=== PATIENT | male | born 1940 | race Caucasian/White ===

== ENCOUNTER 2016-10-26 07:17 | Inpatient (IN) | payer MEDICARE, BC ==
[2016-10-26] MEDS ORDERED: NS 0.9% 1000 ML* 1,000 ML IV ONE (07:32)
[2016-10-26] MEDS ORDERED: Ondansetron INJ* 2 MG/ML VIAL IV ONE (07:32)
[2016-10-26 07:54] LABS: Hematocrit 40 % (42-52); Hemoglobin 13.3 g/dl (14.0-18.0); Mean Corpuscular HGB Conc 33 g/dl (31-36); Mean Corpuscular Hemoglobin 31 pg (27-31); Mean Corpuscular Volume 93 fL (80-94); Mean Platelet Volume 9 um3 (7.4-10.4); Red Blood Count 4.31 10^6/ul (4.0-5.4); Red Cell Distribution Width 14 % (10.5-15); White Blood Count 16.4 10^3/ul (3.5-10.8)
[2016-10-26 08:03] LABS: Add Diff/Slide Review? Slide Review Added; Comments Flag Yes
[2016-10-26 08:11] LABS: Albumin 3.3 g/dL (3.2-5.2); BUN/Creatinine Ratio 31.4 (8-20); C Reactive Protein 368.08 mg/L (< 5.00); Calcium 9.9 mg/dL (8.6-10.3); EGFR African American 75.2 (>60); EGFR Non-African American 58.5 (>60); Globulin 4.1 g/dL (2-4); Magnesium 1.9 mg/dL (1.9-2.7); Total Bilirubin 0.8 mg/dL (0.2-1.0); Total Protein 7.4 g/dL (6.4-8.9); Troponin I 0.02 ng/mL (<0.04)
[2016-10-26 08:15] LABS: B Type Natriuretic Peptide 669 pg/mL
[2016-10-26] MEDS ORDERED: Iodixanol* (CONTRAST) 320 MG/ML 100 ML SDV IV ONE (08:45)
[2016-10-26 09:11] LABS: Immature Granulocytes 26 % (0-9); Myelocytes % 1 % (0-1); Neutrophil % 59 % (38-83); Promyelocytes % 1 %
[2016-10-26 09:12] LABS: Toxic Granulation 2+
[2016-10-26 09:20] LABS: Urine Bacteria Absent (Absent); Urine Bilirubin Negative (Negative); Urine Glucose 1+(50 mg/dL) (Negative); Urine Nitrite Negative (Negative)
[2016-10-26 09:26] LABS: Ammonia 46 mol/L (16-53)
--- NOTE | 2016-10-26 09:41 | RAD ---
INDICATION: Lower abdominal pain. Increased weakness. Possible fever. COMPARISON: No relevant prior exams available on the [facility]. TECHNIQUE: Multidetector CT images were obtained from the lung bases to the ischial tuberosities with 116 mL Visipaque 320 IV and oral contrast. Multiplanar reformation. REPORT: Visualized inferior thorax is remarkable for mild cardiomegaly and coronary artery calcifications. Negative for pericardial effusion. Small RIGHT epicardial lymph nodes are visualized measuring up to 0.5 cm short axis. Coarse basilar lung markings most prominent in the dependent portions. Mild interstitial edema is not excluded. Negative for pleural effusions. Heterogeneously decreased density of the liver consistent with hepatosteatosis. Negative for focal hepatic lesions or biliary dilatation. Distended gallbladder with suggestion of mild thickened wall and severe pericholecystic inflammatory change. Suggestion of a weakly calcified stone at the neck of the gallbladder. Additionally there is increased density at the level of the distal common bile duct concerning for potential common bile duct stones despite absence of biliary dilatation. Moderately atrophic pancreas without suspicious finding. Unremarkable spleen. Gastric distention with liquid and gas. Suggestion of mild mural thickening at the gastric antrum and second portion of the duodenum. Medially directed diverticulum from the second portion of the duodenum without suspicious finding. No CT abnormality of the jejunum or ileum. Unremarkable infra medially extending appendix. The hepatic flexure proximal segment of the transverse colon wall decompressed limiting assessment is remarkable for long segment mild mural thickening likely reactive secondary to the acute inflammatory process centered at the gallbladder. Trace RIGHT upper quadrant and RIGHT paracolic gutter free fluid. Negative for free air. Small fat-containing direct LEFT inguinal hernia without inflammatory change. Normal adrenal glands. Symmetric nephrograms and pyelograms. 1 cm cortical cyst anterior midpole LEFT kidney. No suspicious renal lesions or hydronephrosis. 2 mm stone at the RIGHT ureterovesicular junction noted despite absence of RIGHT hydroureteronephrosis. Unremarkable LEFT ureter and ureterovesicular junction. Partially distended urinary bladder without suggestion of wall thickening. Enlarged prostate with coarse calcifications. Grossly symmetric seminal vesicles. Mildly enlarged mary hepatis and periaortic lymph nodes measuring 1.1 cm short axis or smaller. Mild atherosclerotic plaque of normal diameter abdominal aorta and iliac arteries. Polyarticular degenerative arthropathy. No suspicious focal osseous lesions evident. IMPRESSION: 1. There is severe inflammatory reaction surrounding the gallbladder with potential cholelithiasis and involvement of the hepatic flexure proximal transverse colon as well as the gastric antrum to second portion of the duodenum. The differential includes acute cholecystitis as well as gastritis and duodenitis versus colitis. RIGHT upper quadrant ultrasound is suggested for more accurate assessment of the gallbladder. 2. Hepatosteatosis. 3. Trace ascites. 4. 2 mm stone at the RIGHT ureterovesicular junction noted despite absence of RIGHT hydroureteronephrosis. 5. Mildly enlarged mary hepatis and periaortic lymph nodes measuring 1.1 cm short axis or smaller.
[2016-10-26] MEDS ORDERED: Levofloxacin 750 MG IVPREMIX(* 750 MG/150 ML BAG IVPB ONE (10:54)
[2016-10-26] MEDS ORDERED: metroNIDAZOLE IV 500 MG/100ML* 500 MG/100 ML BAG IVPB ONE (10:55)
[2016-10-26] MEDS ORDERED: Metoprolol Tartrate IV* 1 MG/ML 5 ML VIAL IV PRN ×3 (11:30→16:18)
[2016-10-26] MEDS ORDERED: Metoprolol Tartrate IV* 1 MG/ML 5 ML VIAL ONE (11:35)
[2016-10-26] MEDS ORDERED: Dextrose 50% Syringe 50 ML* 25 GM/50 ML SYRINGE IV PUSH PRN (12:08)
[2016-10-26] MEDS ORDERED: NS 0.9% 1000 ML* 1,000 ML IV SCH (12:15)
--- NOTE | 2016-10-26 13:11 | RAD ---
INDICATION: Abdominal pain. COMPARISON: Comparison is made with a prior CT of the abdomen and pelvis of the same date. TECHNIQUE: Multiple real-time images of the right upper quadrant were obtained. FINDINGS: The gallbladder is distended. No gallstones are seen although there is biliary sludge present. The gallbladder wall is thickened measuring up to 8 mm in thickness and there is a trace amount of pericholecystic fluid. The patient had tenderness strictly over the gallbladder. No intrahepatic ductal distention is seen although there is mild extrahepatic ductal distention. The common bile duct measured 0.9 cm in diameter. The liver is normal in size and increased in echogenicity consistent with fatty infiltration as seen on the prior CT study. No focal hepatic abnormality is seen. The pancreas is partially obscured by overlying bowel gas. The right kidney is normal in size without evidence for hydronephrosis. IMPRESSION: 1. DISTENDED GALLBLADDER WITH THICKENED GALLBLADDER DEL RIO AND SLUDGE SUGGESTING THE POSSIBILITY OF ACALCULUS CHOLECYSTITIS. A HEPATOBILIARY NUCLEAR MEDICINE SCAN MAY BE HELPFUL IN FURTHER EVALUATION. 2. MILD EXTRAHEPATIC DUCTAL DISTENTION. 3. HEPATIC STEATOSIS.
[2016-10-26] MEDS: Clopidogrel TAB* 75 MG PO SCH (13:43)
[2016-10-26] MEDS: Heparin VIAL(*) 5000 UNITS/ML VIAL (FIVE THOUSAND) SUBCUT SCH ×2 (13:43→21:44)
[2016-10-26] MEDS: Aspirin EC Low Dose* 81 MG TAB.EC PO SCH (13:43)
[2016-10-26] MEDS: Metoprolol Tartrate IV* 1 MG/ML 5 ML VIAL IV SCH ×2 (13:44→17:42)
--- NOTE | 2016-10-26 13:59 | CONS ---
CC: Dr. Tyrone Leo; Dr. Adrien Brown; Dr. Tawanda Myers; [facility] SURGICAL CONSULTATION REPORT: DATE OF CONSULT: 10/26/16 LOCATION: The patient is seen in the emergency room. HISTORY OF PRESENT ILLNESS: I was contacted by the emergency room physicians to evaluate Mr. Moreno, a 76-year-old gentleman who presents to [facility] Room today with a 2-week history of severe ab dominal pain, decreased appetite as well as chills. The patient describes onset of symptoms approximately 2 weeks ago, mostly in the upper abdomen, some what radiating, relieved with rest. Pain was somewhat intermittent and then became more steady with in the past week. The pain also migrated to the lower abdomen. It was accompanied with significant ly decreased appetite, bloating, hiccups. The patient denies nausea, however. He is passing flatus but not much and he is having bowel movements, the last one being this morning which is also small. The patient states he has not been eating or drinking much at all. The patient felt without improve ment, that he would present to the emergency room today. No significant changes within the last day or two other than persistent symptoms. The patient denies any previous similar symptoms. PAST MEDICAL HISTORY: Atrial fibrillation, type 2 diabetes, obesity, coronary artery disease, chron ic kidney disease, hypertension, BPH, arthritis, history of duodenal ulcer and GI bleed in 1989. O bstructive sleep apnea, on CPAP. Hypercholesterolemia. PAST SURGICAL HISTORY: Reviewed. No abdominal surgeries. HOME MEDICATIONS: Include, he takes: 1. Plavix 75 mg daily. 2. Glipizide. 3. Hydrocodone. He takes hydrocodone for his back pain and arthritis. 4. Lovaza. 5. Bystolic. 6. BuSpar. 7. Glucosamine. 8. Aspirin 81 mg. 9. Nitropatch as needed. 10. Nexium 40 mg. 11. Avodart. 12. Fenofibrate. 13. Ramipril. 14. Flonase. 15. Coenzyme Q. ALLERGIES: List reviewed. SOCIAL HISTORY: He denies tobacco or alcohol use. He lives with his . He is retired. REVIEW OF SYSTEMS: He denies fevers but has had chills and sweats. No recent weight gain or weight loss. No headaches. No shortness of breath or chest pain. The patient normally can walk up a flig ht of stairs but finds it difficult now because he states he is weak. Abdominal complaints as descr ibed. No dysuria. No change in bowel habits. No bleeding or clotting disorders. No dark colored urine or light colored stools. He does have hiccups but he has not vomited. PHYSICAL EXAM: He is afebrile. Heart rate tachy in the 130s, I did not view an EKG at this time. Hypertensive, O2 sat 96 with a respiration rate in the low 20s. He is alert and oriented x3 in no ap parent distress. Head, Ears, Eyes and Throat: Normocephalic, atraumatic. Sclerae anicteric. Mucou s membranes are dry. He has got a washcloth on his forehead. He is somewhat clammy. Neck: No lym phadenopathy. Lungs: Clear to auscultation bilaterally with good inspiratory effort. Abdomen: So ft, obese, distended and tender only on deep palpation in the mid abdomen. No hernias are noted. N egative Clark's sign. No CVA tenderness. Rectal exam not performed. DIAGNOSTIC STUDIES/LAB DATA: Labs reviewed show a white count of 16.4 with no left shift. H and H 13/40, the patient typically has hematocrit of 36. Metabolic panel reviewed shows a glucose of 230. BUN and creatinine ratio of 31. Creatinine 1.2 which is not far of his baseline. Elevated CRP an d normal LFTs. Urinalysis shows trace blood and ketones as well as glucose. The patient underwent a CAT scan of the abdomen and pelvis. These images as well as report reviewed . Large inflammatory process around the dilated gallbladder which shows involvement in the proximal colon, as well as, duodenal inflammatory changes as well. The patient's stomach is fluid filled an d distended. IMPRESSION: A 76-year-old gentleman with metabolic syndrome and now presents with 2-week history of abdominal pain with history of duodenal ulcer in the past but with strong inflammatory process show ing up in the gallbladder, which is suggestive of an acute cholecystitis. I favor this at this time . Differential diagnosis includes colitis as well as enteritis. The patient is getting started on antibiotics at this point, require IV fluids, admission. I believe the patient is out of the window to look towards urgent laparoscopic cholecystectomy. We will await ultrasound. If the gallbladder appears within normal limits with the exception of dilatation, then we will entertain the idea of d uodenal issue and recommend gastroenterology evaluation and possible EGD. I discussed with patient and patient's family the possibility of requiring urgent trip to the operating room for cholecystect darrian or cholecystostomy. My impression now is that the antibiotics and hospitalization will be adequ ate but we will follow along closely. I have asked the ER doctors to consult the hospitalist marko andino for admission. The patient and patient's family members questions were answered. We will continu e to follow closely. He is already started on Levaquin and Flagyl. Concern will be patient's ability to get nutrition and this might lead to potential need for edenilson ral nutrition but we will certainly await the next 24 hours prior to any intervention of this kind. [id number]/[facility] #: [id number]
--- NOTE | 2016-10-26 14:40 | HP ---
CC: Tyrone Leo MD HISTORY AND PHYSICAL: DATE OF ADMISSION: 10/26/16 PCP: Tyrone Leo MD CHIEF COMPLAINT: Abdominal pain. HISTORY OF PRESENT ILLNESS: Mr. Moreno is a 76-year-old male with past medical history of hypertensi on, CAD, status post stenting x3, KIT on CPAP, diabetes, BPH, CKD 3, subdural hematoma, AFib, who pr esents to the hospital with 2 weeks of abdominal pain. The patient states that the pain began about 2 weeks ago, was initially located in the epigastric area. However, he feels it has moved down tow ards his lower abdomen over the past few weeks. He has felt nauseous and had decreased p.o. intake. He has been trying food intermittently, but this has worsened the pain, although he has noticed th at when he eats yogurt, it seems to help. He has had some dry heaving, but no emesis. He states he occasionally gets some episodes where he feels really hot and sweaty. He has never had any history like this before. He states when he urinates, it seems to improve the pain. Denies any blood in hi s urine or any flank pain. No chest pain or shortness of breath. He has had some diarrhea that has been nonbloody. No constipation. No blood in the stool. No sick contacts at home. PAST MEDICAL HISTORY: CAD, status post stenting x3; KIT, on CPAP; type 2 diabetes; hypertension; BP H; CKD x3; subdural hematoma was not traumatic; and AFib. PAST SURGICAL HISTORY: Stent placement and yudy hole placement. ALLERGIES: KEFLEX, STATINS, EZETIMIBE. HOME MEDICATIONS: 1. Multivitamin 2 tablets by mouth daily. 2. Beclomethasone 2 sprays in both nares at bedtime. 3. Alirocumab 75 mg subcutaneous every 2 weeks. 4. Amlodipine 10 mg by mouth nightly. 5. Ramipril 10 mg by mouth nightly. 6. Aspirin 81 mg by mouth daily. 7. Magnesium oxide 250 mg by mouth daily. 8. Glucosamine chondroitin 1 tablet by mouth 2 times daily. 9. Fenofibrate 48 mg by mouth nightly. 10. Esomeprazole 40 mg by mouth daily. 11. Dutasteride 0.5 mg by mouth daily. 12. B complex 1 tablet by mouth daily. 13. Buspirone 10 mg by mouth 2 times daily. 14. Lovaza 1 g by mouth 3 times daily. 15. Nebivolol 15 mg by mouth daily. 16. Glipizide-metformin 5/500 two tablets by mouth 2 times daily. 17. Eplerenone 50 mg by mouth daily. 18. Coenzyme Q 100 mg by mouth daily. 19. Ludlow 5/325 one tablet by mouth every 6 hours as needed for pain. 20. Plavix 75 mg by mouth daily. FAMILY HISTORY: Significant for mother with diabetes, father with CAD who at 49, paternal gran dmother with CAD, paternal grandfather with CAD who at 41. SOCIAL HISTORY: The patient denies any history of tobacco abuse, alcohol abuse, or illicit drug use . REVIEW OF SYSTEMS: A 12-point review of systems was negative except for that as noted in the HPI. PHYSICAL EXAMINATION GENERAL: The patient is a pleasant elderly male, lying in bed in no apparent distress. VITAL SIGNS ON ADMISSION: Temperature 98.1, heart rate of 139, respiratory rate of 22, O2 saturatio n 94% on room air, blood pressure 143/80. HEENT: Head normocephalic and atraumatic. Eyes: Anicteric sclerae. Pupils equal, round, and reac tive to light and accommodation. ENT: Moist mucous membranes. No oropharyngeal erythema. No cerv ical adenopathy. CARDIOVASCULAR: Tachycardic, irregularly irregular. No murmurs, gallops, or rubs. The patient has some mild bibasilar rales. No wheezing is appreciated. ABDOMEN: Soft, mild distension. Bowel sounds positive. Mostly tender to palpation in the right lo wer quadrant. No rebound or guarding. EXTREMITIES: No cyanosis, clubbing, or edema. NEUROLOGIC: The patient is alert and oriented x3. No focal neurological deficits. DIAGNOSTIC STUDIES/LAB DATA: White blood cell count is 16.4, hematocrit of 40, platelets of 268, b ands of 24%. Sodium 135, potassium 4.0, chloride is 96, carbon dioxide is 36, BUN of 38, creatinine of 1.21, glucose of 230. LFTs are within normal limits. Troponin of 0.02, CRP of 368, B-natriuret ic peptide of 669. Lipase of 62. UA with 2+ protein, 1+ ketones. No blood. EKG, personally reviewed, shows AFib with rapid ventricular response. CT of the abdomen and pelvis shows inflammation involving the gallbladder, potential chololithiasis, and some duodenal and colon inflammation, also noted incidentally is a 2 mm stone in the right ureterovesical junction with no r ight-sided hydronephrosis, also hepatic steatosis and trace ascites. ASSESSMENT AND PLAN: Acute cholecystitis in a 76-year-old male with past medical history of coronar y artery disease, status post stent placement x3; obstructive sleep apnea, on CPAP; diabetes; hypert ension; benign prostatic hypertrophy, chronic kidney disease 3, subdural hematoma, and atrial fibril lation. 1. Acute cholecystitis. This seems like the most likely diagnosis; however, we will need an ultras ound to help confirm this. The patient does have diffuse inflammation noted on CT scan. He has got a significant bandemia. He has received Levaquin and Flagyl in the emergency department. We will continue on Cipro and Flagyl. We will place the patient on clear liquids for now. Appreciate Surge ry consultation. Dr. Wooten feels that the patient is out of the window for rushing off to surgery a t this point, would prefer to treat with antibiotics and determine when to undergo surgery based on the patient's response. The patient does not have an elevated lactic acid, though he does have some evidence of rales and elevated B- natriuretic peptide. He has got a liter of fluid in the emergenc y department. We will hold off on additional fluids for now. We will place the patient on a clear liquid diet. 2. Atrial fibrillation. The patient's rate is not controlled. He states he has not been taking hi s medications for a few days due to nausea. He has not received anything in the emergency departmen t for rate control. I have ordered him 5 mg of IV metoprolol for now, and we will start scheduled q .6 hours, trying to minimize the amount of p.o. medications the patient is taking as he has had sign ificant nausea over the past days and has been unable to keep them down. 3. Coronary artery disease. The patient had a stent placed. It looks like this was the last one t hat was done last November, which has been about a year. He is on aspirin and Plavix. We will discuss further with Surgery regarding continuing Plavix or whether that would impede surgery. We will cont inue aspirin for now. 4. Chronic kidney disease 3. The patient's creatinine seems to be at baseline. 5. Diabetes. Hold the patient's glipizide and metformin. We will write for Humalog insulin slidin g scale. 6. Obstructive sleep apnea. Continue patient on CPAP at night. 7. Hypertension. Continue with metoprolol alone for now. Hold patient's home ramipril, eplerenone , and amlodipine. Can restart this as pressures tolerate; however, in the setting of significant in fection, we will hold it. 8. Incidental kidney stone, does not seem to be causing any issues at this point. No hydronephrosis , no blood in the urine, but it is noted. We can keep that in mind if any new symptoms pop up. 9. DVT prophylaxis, heparin subcu. 10. Code status. The patient is a full code. TIME SPENT: Total time spent on this admission 60 minutes with over half the time spent face-to-fac e with the patient in counseling and coordinating the care. [id number]/[facility] #: [id number]
[2016-10-26] MEDS: Morphine INJ* 2 MG/ML 1 ML SYRINGE IV PRN ×2 (15:35→21:42)
[2016-10-26] MEDS: Ondansetron INJ* 2 MG/ML VIAL IV PRN ×2 (15:43→19:40)
[2016-10-26] MEDS: Insulin LISPRO* 1 UNITS UNIT SUBCUT SCH (17:27)
[2016-10-26] MEDS: Fluticasone NASAL SPRAY 50MCG* 16 gm SPRAY BTL BOTH NARES SCH (20:02)
[2016-10-26] MEDS: busPIRone TAB* 10 MG PO SCH (20:02)
[2016-10-26] MEDS: metroNIDAZOLE IV 500 MG/100ML* 500 MG/100 ML BAG IVPB SCH (20:03)
--- NOTE | 2016-10-26 21:13 | ED ---
Piter Florez Billy, scribed for Ruddy Tamayo MD on 10/26/16 at 0730 . Abdominal Pain/Male - HPI Summary HPI Summary: Patient is a 76 year-old male coming to [facility] for evaluation of intermittent lower abdominal pain for the last 2 weeks. He states that the pain is intermittent but "there most of the time." Severity ranges anywhere from 3/10 to 9/10, where the pain is 3/10 at this time. The pain is worse with food, but he is able to tolerate having some yogurt. He has had numerous episodes of nausea and dry heaves, and he states that he has not passed any solid stools since he has not had much to eat. He is still able to pass gas, with the last flatus being this morning. He states that the pain is isolated to the lower abdomen now, non-radiating, but he believes it may have started in the upper abdomen. Denies any similar previous episodes. Denies past surgical history of the abdomen. Last colonoscopy was with Dr. Almonte less than 10 years ago. - History of Current Complaint Chief Complaint: EDGeneral Stated Complaint: ABD PAIN Time Seen by Provider: 10/26/16 07:19 Hx Obtained From: Patient Onset/Duration: Gradual Onset, Lasting Weeks Timing: Intermittent Severity Initially: Moderate Severity Currently: Moderate Pain Intensity: 3 Pain Scale Used: 0-10 Numeric Location: Discrete At: RLQ, Discrete At: LLQ Radiates: No Aggravating Factor(s): Food Alleviating Factor(s): Nothing Associated Signs And Symptoms: Positive: Decreased Appetite, Nausea - Allergies/Home Medications Allergies/Adverse Reactions: Allergies Allergy/AdvReac Type Severity Reaction Status Date / Time Cephalexin [From Keflex] Allergy Severe Anaphylatic Verified 10/26/16 07:49 Shock Statins Allergy Muscle Ache Verified 10/26/16 07:49 Ezetimibe [From Zetia] AdvReac Intermediate See Comment Verified 10/26/16 07:49 Yeast AdvReac See Comment Verified 10/26/16 12:36 castellano's yeast AdvReac Mild See Comment Uncoded 10/26/16 07:49 Home Medications: Home Medications Aspirin EC Low Dose* [Ecotrin EC Low Dose 81 MG*] 81 mg PO DAILY 10/26/16 [ History Confirmed 10/26/16] PMH/Surg Hx/FS Hx/Imm Hx Endocrine/Hematology History: Reports: Hx Diabetes Denies: Hx Anticoagulant Therapy, Hx Blood Disorders, Hx Blood Transfusions, Hx Bone Marrow Disease, Hx Systemic Lupus Erythematosus, Hx Sickle Cell Disease , Hx Thyroid Disease, Hx Anemia, Hx Unexplained Bleeding, Other Endocrine/ Hematological Disorders Cardiovascular History: Reports: Hx Angina, Hx Coronary Artery Disease, Hx Hypercholesterolemia, Hx Hypertension, Hx Myocardial Infarction, Other Cardiovascular Problems/Disorders - stent Denies: Hx Rheumatic Fever, Hx Valvular Heart Disease Respiratory History: Reports: Hx Sleep Apnea - cpap at night Denies: Hx Asthma, Hx Chronic Bronchitis, Hx Chronic Obstructive Pulmonary Disease (COPD), Hx Cystic Fibrosis, Hx Lung Cancer, Hx Pleural Effusion, Hx Pneumonia, Hx Pulmonary Edema, Hx Pulmonary Embolism, Hx Seasonal Allergies, Other Respiratory Problems/Disorders GI History: Reports: Hx Gastroesophageal Reflux Disease - omeprazole Denies: Hx Cirrhosis, Hx Crohn's Disease, Hx Diverticulosis, Hx Gall Bladder Disease, Hx Gastrointestinal Bleed, Hx Hiatal Hernia, Hx Irritable Bowel, Hx Jaundice, Hx Obstructive Bowel, Hx Ileostomy, Hx Pyloric Stenosis, Hx Ulcer, Other GI Disorders History: Reports: Hx Acute Renal Failure, Hx Chronic Renal Failure - followed by Dr. 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 Denies: Hx Bursitis, Hx Congenital Bone Abnormalities, Hx Fibromyalgia, Hx Gout, Hx Osteoporosis, Hx Scoliosis, Hx Tendonitis Comment Only: Hx Rheumatoid Arthritis - OSTEOARTHRITIS Sensory History: Reports: Hx Cataracts, Hx Contacts or Glasses - GLASSES FOR READING Denies: Hx Hearing Aid Opthamlomology History: Reports: Hx Cataracts, Hx Contacts or Glasses - GLASSES FOR READING Psychiatric History: Reports: Hx Anxiety - Cancer History Hx Chemotherapy: No Hx Radiation Therapy: No Hx Palliative Cancer Treatment: No - Surgical History Surgery Procedure, Year, and Place: 04/12 [facility] -(left) cataract, 05/12 [facility]- (left ) eye refractive error, lense replacement. 03/14 [facility]- bilateral quadraceps muscle tear & bilateral anterior thigh hematoma. heart stent, Bilateral knee surgery, yudy hole Hx Anesthesia Reactions: No Infectious Disease History: No Infectious Disease History: Denies: Hx Clostridium Difficile, Hx Hepatitis, Hx Human Immunodeficiency Virus (HIV), Hx of Known/Suspected MRSA, Hx Shingles, Hx Tuberculosis, Hx Known/ Suspected VRE, Hx Known/Suspected VRSA, History Other Infectious Disease, Traveled Outside the [place] in Last 30 Days - Family History Known Family History: Positive: Cardiac Disease - Social History Alcohol Use: None Hx Substance Use: No Substance Use Type: Reports: None Hx Tobacco Use: No Smoking Status (MU): Never Smoked Tobacco Review of Systems Negative: Fever Gastrointestinal: Other - decreased appetite Positive: Abdominal Pain, Nausea - with dry heaves All Other Systems Reviewed And Are Negative: Yes Physical Exam - Summary Physical Exam Summary: VITAL SIGNS: Reviewed. GENERAL: Patient is an obese male who is lying comfortable in the stretcher. Patient is not in any acute respiratory distress. HEAD AND FACE: Normocephalic and atraumatic. EYES: PERRLA, EOMI x 2, No injected conjunctiva. EARS: Hearing grossly intact. Ear canals and tympanic membranes are WNL. MOUTH: Oropharynx within normal limits. NECK: Supple, trachea is midline, no adenopathy, no JVD. CHEST: Symmetric, no tenderness at palpation LUNGS: Clear to auscultation bilaterally. No wheezing or crackles. CVS: IRRR,, S1 and S2 present, no murmurs or gallops appreciated. ABDOMEN: Soft, positive lower abdominal tenderness. Mild chronic distention. Positive bowel sounds. No rebound no guarding, and no masses palpated. No abdominal bruit or pulsations. EXTREMITIES: FROM in all major joints, no edema, no cyanosis or clubbing. NEURO: Alert and oriented x 3. No acute neurological deficits. Speech is normal. SKIN: Dry and warm Triage Information Reviewed: Yes Vital Signs On Initial Exam: Initial Vitals Temp Pulse Resp BP Pulse Ox 98.1 F 139 22 143/80 94 10/26/16 07:21 10/26/16 07:21 10/26/16 07:21 10/26/16 07:21 10/26/16 07:21 Vital Signs Reviewed: Yes - [place] Coma Scale Coma Scale Total: 15 Diagnostics - Vital Signs Vital Signs Temp Pulse Resp BP Pulse Ox 10/26/16 07:23 98.1 F 132 22 143/80 94 10/26/16 07:21 98.1 F 139 22 143/80 94 - Laboratory Result Diagrams: 10/26/16 07:40 10/26/16 07:40 Lab Statement: Any lab studies that have been ordered have been reviewed, and results considered in the medical decision making process. - CT abd/pel CT Interpretation Completed By: Radiologist - 1. There is severe inflammatory reaction surrounding the gallbladder with potential cholelithiasis and involvement of the hepatic flexure proximal transverse colon as well as the gastric antrum to second portion of the duodenum. The differential includes acute cholecystitis as well as gastritis and duodenitis versus colitis. RIGHT upper quadrant ultrasound is suggested for more accurate assessment of the gallbladder. 2. Hepatosteatosis. 3. Trace ascites. 4. 2 mm stone at the RIGHT ureterovesicular junction noted despite absence of RIGHT hydroureteronephrosis. 5. Mildly enlarged mary hepatis and periaortic lymph nodes measuring 1.1 cm short axis or smaller. - Ultrasound No standard instances Ultrasound Interpretation Completed By: Radiologist - ABDOMEN ULTRASOUND: 1. DISTENDED GALLBLADDER WITH THICKENED GALLBLADDER DEL RIO AND SLUDGE SUGGESTING THE POSSIBILITY OF ACALCULUS CHOLECYSTITIS. A HEPATOBILIARY NUCLEAR MEDICINE SCAN MAY BE HELPFUL IN FURTHER EVALUATION. 2. MILD EXTRAHEPATIC DUCTAL DISTENTION. 3. HEPATIC STEATOSIS. - EKG 0754 EKG Interpretation: atrial fibrillation 119 bpm, no STEMI Abdominal Pain Fem Course/Dx - Course Assessment/Plan: Patient is a 76 year-old male coming to [facility] for evaluation of intermittent lower abdominal pain for the last 2 weeks. He states that the pain is intermittent but "there most of the time." Severity ranges anywhere from 3/10 to 9/10, where the pain is 3/10 at this time. The pain is worse with food, but he is able to tolerate having some yogurt. He has had numerous episodes of nausea and dry heaves, and he states that he has not passed any solid stools since he has not had much to eat. He is still able to pass gas, with the last flatus being this morning. He states that the pain is isolated to the lower abdomen now, non-radiating, but he believes it may have started in the upper abdomen. Denies any similar previous episodes. Denies past surgical history of the abdomen. Last colonoscopy was with Dr. Almonte less than 10 years ago. Waiver signed stating that we are aware of the patient's allergy to Keflex but the patient has had IV contrast in the past without issue. Test results show WBC of 16.4, slight anemia, renal insufficiency with BUN of 38 and creatinine of 1.21. CRP is 368 and BNP is 669. UA shows 2+ protein and 1+ ketones. In the ED course, pt was started with IVF and Zofran for nausea. I decided to order CT abd/pel since he had lower abdominal pain. The CT of the abd /pel shows findings as read by the radiology. Because of the acute cholecystitis , I discussed the case with Dr. Wooten who came and assessed the patient. He requested to admit the patient to the medical team for his multiple co- morbidities. He does not expect to do cholecystectomy in at least 72 hours. The patient was started on Levaquin and Flagyl. He recommended an ultrasound, which was ordered, and shows findings described above, as read by the radiologist. At this point, I discussed my exam findings with Dr. Young who accepted him for admission. He is A&Ox3, hemodynamically stable. - Diagnoses Differential Diagnosis/HQI/PQRI: Constipation, Diverticulitis Provider Diagnoses: Acute cholecystitis, Acute renal failure - Provider Notifications Discussed Care Of Patient With: Dr. Wooten (surgery) at 1045: will see the patient in the ED. Dr. Young (hospitalist) at 1119: accepts admission. Discharge - Discharge Plan Condition: Stable Disposition: ADMITTED TO [facility] The documentation as recorded by the Piter ordonez Billy accurately reflects the service I personally performed and the decisions made by me, Ruddy Tamayo MD.
[2016-10-27] MEDS: Metoprolol Tartrate IV* 1 MG/ML 5 ML VIAL IV SCH ×3 (00:33→13:18)
[2016-10-27] MEDS: Ondansetron INJ* 2 MG/ML VIAL IV PRN ×3 (00:33→20:27)
[2016-10-27] MEDS: Morphine INJ* 2 MG/ML 1 ML SYRINGE IV PRN ×2 (03:23→13:18)
[2016-10-27] MEDS: metroNIDAZOLE IV 500 MG/100ML* 500 MG/100 ML BAG IVPB SCH ×3 (03:30→20:27)
[2016-10-27] MEDS: Heparin VIAL(*) 5000 UNITS/ML VIAL (FIVE THOUSAND) SUBCUT SCH ×3 (06:07→22:39)
[2016-10-27 06:49] LABS: Hematocrit 37 % (42-52); Hemoglobin 12.4 g/dl (14.0-18.0); Mean Corpuscular HGB Conc 34 g/dl (31-36); Mean Corpuscular Hemoglobin 31 pg (27-31); Mean Corpuscular Volume 93 fL (80-94); Mean Platelet Volume 8 um3 (7.4-10.4); Red Blood Count 3.96 10^6/ul (4.0-5.4); Red Cell Distribution Width 14 % (10.5-15); White Blood Count 15.2 10^3/ul (3.5-10.8)
[2016-10-27 06:54] LABS: Add Diff/Slide Review? Slide Review Added; Comments Flag Yes
[2016-10-27 07:07] LABS: BUN/Creatinine Ratio 26.7 (8-20); Calcium 8.9 mg/dL (8.6-10.3); EGFR African American 88.6 (>60); EGFR Non-African American 68.9 (>60)
[2016-10-27 08:30] LABS: Immature Granulocytes 1 % (0-9); Metamyelocytes % 1 % (0-2); Neutrophil % 86 % (38-83); Reactive Lymph % 3 % (0-6)
[2016-10-27 08:31] LABS: Add Path Review? YES; RBC Morphology Normal (Normal)
[2016-10-27] MEDS: Aspirin EC Low Dose* 81 MG TAB.EC PO SCH (08:57)
[2016-10-27] MEDS: Clopidogrel TAB* 75 MG PO SCH (08:57)
[2016-10-27] MEDS: Diltiazem TAB* 30 MG PO SCH ×4 (08:57→23:53)
[2016-10-27] MEDS: busPIRone TAB* 10 MG PO SCH ×2 (08:58→20:27)
[2016-10-27] MEDS: Insulin LISPRO* 1 UNITS UNIT SUBCUT SCH ×3 (08:58→17:19)
[2016-10-27] MEDS: COENZYME Q10 100 MG PO SCH (08:59)
--- NOTE | 2016-10-27 09:12 | PN ---
Progress Note - Progress Note Note: Surgery Mr. Moreno reports the pain is much less. He also had a "good movement" this morning. He is dealing with afib this morning. Vital Signs 10/26/16 10/26/16 10/26/16 09:15 09:18 09:30 Temperature Pulse Rate 145 131 124 Respiratory Rate Blood Pressure 145/91 157/89 (mmHg) O2 Sat by Pulse 90 90 94 Oximetry 10/26/16 10/26/16 10/26/16 10:00 10:30 11:00 Temperature Pulse Rate 121 121 125 Respiratory Rate Blood Pressure 141/91 145/73 150/102 (mmHg) O2 Sat by Pulse 94 96 96 Oximetry 10/26/16 10/26/16 10/26/16 11:30 11:40 12:00 Temperature Pulse Rate 120 123 114 Respiratory Rate Blood Pressure 153/86 134/96 146/100 (mmHg) O2 Sat by Pulse 93 94 92 Oximetry 10/26/16 10/26/16 10/26/16 12:30 13:00 13:27 Temperature Pulse Rate 110 124 Respiratory 18 Rate Blood Pressure 147/85 144/85 (mmHg) O2 Sat by Pulse 96 95 Oximetry 10/26/16 10/26/16 10/26/16 13:30 14:00 14:05 Temperature 98.0 F Pulse Rate 207 117 117 Respiratory 18 Rate Blood Pressure 149/79 137/99 137/99 (mmHg) O2 Sat by Pulse 92 93 Oximetry 10/26/16 10/26/16 10/26/16 15:10 15:35 16:35 Temperature 97.9 F Pulse Rate 61 Respiratory 18 18 16 Rate Blood Pressure 138/95 (mmHg) O2 Sat by Pulse 91 Oximetry 10/26/16 10/26/16 10/26/16 17:40 19:58 20:00 Temperature 97.9 F Pulse Rate 130 98 Respiratory 20 18 Rate Blood Pressure 148/62 125/72 (mmHg) O2 Sat by Pulse 93 Oximetry 10/26/16 10/26/16 10/26/16 21:42 22:42 23:55 Temperature 98.5 F Pulse Rate 86 Respiratory 19 14 22 Rate Blood Pressure 120/64 (mmHg) O2 Sat by Pulse 94 Oximetry 10/27/16 10/27/16 10/27/16 01:10 03:23 03:50 Temperature 98.4 F 98.5 F Pulse Rate 70 96 Respiratory 16 15 20 Rate Blood Pressure 116/67 145/77 (mmHg) O2 Sat by Pulse 94 92 Oximetry 10/27/16 10/27/16 10/27/16 04:23 06:59 07:07 Temperature Pulse Rate Respiratory 14 18 18 Rate Blood Pressure (mmHg) O2 Sat by Pulse Oximetry 10/27/16 07:58 Temperature 99.0 F Pulse Rate 138 Respiratory 16 Rate Blood Pressure 138/75 (mmHg) O2 Sat by Pulse 93 Oximetry Abd: distended, good BS, non-tender even in RUQ. Intake & Output 10/26/16 10/27/16 10/27/16 22:59 06:59 14:59 Intake Total 235 510 Balance 235 510 Intake: IV Fluids 25 NS 25 IVPB 110 110 Flagyl 110 110 Oral 100 400 Other: # Voids 1 Laboratory Results - last 24 hr 10/26/16 10/26/16 10/26/16 07:40 07:40 09:00 WBC RBC Hgb Hct MCV MCH MCHC RDW Plt Count MPV Immature Gran % (Auto) 26 H Neut % (Auto) Lymph % (Auto) [place] % (Auto) Eos % (Auto) Baso % (Auto) Absolute Neuts (auto) Absolute Lymphs (auto) Absolute Monos (auto) Absolute Eos (auto) Absolute Basos (auto) Absolute Nucleated RBC Neutrophils % 59 Band Neutrophils % 24 H Lymphocytes % 4 L Reactive Lymphs % Monocytes % 11 Metamyelocytes % Myelocytes % 1 Promyelocytes % 1 Nucleated RBC % Toxic Granulation 2+ Platelet Morphology Normal RBC Morphology Not Reportable Sodium Potassium Chloride Carbon Dioxide Anion Gap BUN Creatinine Est GFR ( Amer) Est GFR (Non-Af Amer) BUN/Creatinine Ratio Glucose POC Glucose (mg/dL) Calcium Ammonia 46 Urine Color Yellow Urine Appearance Cloudy Urine pH 5.0 Ur Specific [place] 1.018 Urine Protein 2+(100 mg/dl) H Urine Ketones 1+ H Urine Blood Negative Urine Nitrate Negative Urine Bilirubin Negative Urine Urobilinogen Negative Ur Leukocyte Esterase Negative Urine WBC (Auto) Absent Urine RBC (Auto) Absent Urine Bacteria Absent Hyaline Casts Present H Granular Casts Present H Urine Glucose 1+(50 mg/dl) H Urine Ascorbic Acid * H 10/26/16 10/26/16 10/27/16 16:52 21:14 06:07 WBC RBC Hgb Hct MCV MCH MCHC RDW Plt Count MPV Immature Gran % (Auto) Neut % (Auto) Lymph % (Auto) [place] % (Auto) Eos % (Auto) Baso % (Auto) Absolute Neuts (auto) Absolute Lymphs (auto) Absolute Monos (auto) Absolute Eos (auto) Absolute Basos (auto) Absolute Nucleated RBC Neutrophils % Band Neutrophils % Lymphocytes % Reactive Lymphs % Monocytes % Metamyelocytes % Myelocytes % Promyelocytes % Nucleated RBC % Toxic Granulation Platelet Morphology Normal RBC Morphology Sodium 136 Potassium 4.0 Chloride 103 Carbon Dioxide 24 Anion Gap 9 BUN 28 H Creatinine 1.05 Est GFR ( Amer) 88.6 Est GFR (Non-Af Amer) 68.9 BUN/Creatinine Ratio 26.7 H Glucose 193 H POC Glucose (mg/dL) 212 H 199 H Calcium 8.9 Ammonia Urine Color Urine Appearance Urine pH Ur Specific [place] Urine Protein Urine Ketones Urine Blood Urine Nitrate Urine Bilirubin Urine Urobilinogen Ur Leukocyte Esterase Urine WBC (Auto) Urine RBC (Auto) Urine Bacteria Hyaline Casts Granular Casts Urine Glucose Urine Ascorbic Acid 10/27/16 10/27/16 06:07 07:22 WBC 15.2 H RBC 3.96 L Hgb 12.4 L Hct 37 L MCV 93 MCH 31 MCHC 34 RDW 14 Plt Count 262 MPV 8 Immature Gran % (Auto) 1 Neut % (Auto) 80.7 Lymph % (Auto) 6.1 L [place] % (Auto) 12.5 H Eos % (Auto) 0.3 Baso % (Auto) 0.4 Absolute Neuts (auto) 12.2 H Absolute Lymphs (auto) 0.9 L Absolute Monos (auto) 1.9 H Absolute Eos (auto) 0.1 Absolute Basos (auto) 0.1 Absolute Nucleated RBC 0.01 Neutrophils % 86 H Band Neutrophils % Lymphocytes % 7 L Reactive Lymphs % 3 Monocytes % 3 Metamyelocytes % 1 Myelocytes % Promyelocytes % Nucleated RBC % 0 Toxic Granulation Platelet Morphology Normal RBC Morphology Normal Sodium Potassium Chloride Carbon Dioxide Anion Gap BUN Creatinine Est GFR ( Amer) Est GFR (Non-Af Amer) BUN/Creatinine Ratio Glucose POC Glucose (mg/dL) 203 H Calcium Ammonia Urine Color Urine Appearance Urine pH Ur Specific [place] Urine Protein Urine Ketones Urine Blood Urine Nitrate Urine Bilirubin Urine Urobilinogen Ur Leukocyte Esterase Urine WBC (Auto) Urine RBC (Auto) Urine Bacteria Hyaline Casts Granular Casts Urine Glucose Urine Ascorbic Acid A/P: Nutrition a concern in this pt. who has "not had a good meal in 2 weeks". Would continue clear liquids for another day, then advance if he continues to improve symptomatically. Will check pre-albumin and start clear liquid supplements. CLFoster
[2016-10-27] MEDS: Ciprofloxacin 400MG IVPREMIX(* 400 MG/200 ML BAG IVPB SCH ×2 (11:25→22:35)
--- NOTE | 2016-10-27 13:39 | PN ---
Subjective Date of Service: 10/27/16 Interval History: Pt is feeling better. He states his pain is improved. He is hungry, he requests boost. He can not feel his heart racing. Objective Active Medications: Aspirin (Aspirin Ec Low Dose*) 81 mg PO DAILY [facility] Last Admin: 10/27/16 08:57 Dose: 81 mg Buspirone HCl (Buspar Tab*) 10 mg PO BID [facility] Last Admin: 10/27/16 08:58 Dose: 10 mg Clopidogrel Bisulfate (Plavix Tab*) 75 mg PO DAILY [facility] Last Admin: 10/27/16 08:57 Dose: 75 mg Coenzyme Q10 (Coenzyme Q10 (Nf)) 1 cap PO QAM [facility] Last Admin: 10/27/16 08:59 Dose: Not Given Dextrose (D50w Syringe 50 Ml*) 12.5 gm IV PUSH .FOR FS < 60 - SS PRN PRN Reason: FS < 60 Diltiazem HCl (Cardizem Tab*) 30 mg PO Q6HR [facility] Last Admin: 10/27/16 11:24 Dose: 30 mg Fluticasone Propionate (Flonase Nasal [place] 50mcg*) 2 spray BOTH NARES BEDTIME [facility] Last Admin: 10/26/16 20:02 Dose: 2 spray Heparin Sodium (Porcine) (Heparin Vial(*)) 5,000 units SUBCUT Q8HR [facility] Last Admin: 10/27/16 13:19 Dose: 5,000 units Metronidazole/Sodium Chloride (Flagyl 500 Mg Ivpb*) 500 mg in 100 mls @ 100 mls /hr IVPB Q8H [facility] Last Admin: 10/27/16 13:18 Dose: 100 mls/hr Ciprofloxacin/Dextrose (Cipro 400 Mg Ivpremix(*)) 400 mg in 200 mls @ 200 mls/ hr IVPB Q12H [facility] Last Admin: 10/27/16 11:25 Dose: 200 mls/hr Insulin Human Lispro (Humalog*) 0 - 15 units SUBCUT AC [facility] PRN Reason: Protocol Last Admin: 10/27/16 13:11 Dose: Not Given Metoprolol Tartrate (Lopressor Iv*) 5 mg IV Q6H [facility] Last Admin: 10/27/16 13:18 Dose: 5 mg Morphine Sulfate (Morphine Inj (Syringe)*) 2 mg IV Q4H PRN PRN Reason: PAIN Last Admin: 10/27/16 13:18 Dose: 2 mg Ondansetron HCl (Zofran Inj*) 4 mg IV Q4H PRN PRN Reason: NAUSEA/VOMITING Last Admin: 10/27/16 13:18 Dose: 4 mg Vital Signs 10/26/16 10/26/16 10/26/16 14:00 14:05 15:10 Temperature 98.0 F 97.9 F Pulse Rate 117 117 61 Respiratory 18 18 Rate Blood Pressure 137/99 137/99 138/95 (mmHg) O2 Sat by Pulse 93 91 Oximetry 10/26/16 10/26/16 10/26/16 15:35 16:35 17:40 Temperature Pulse Rate 130 Respiratory 18 16 Rate Blood Pressure 148/62 (mmHg) O2 Sat by Pulse Oximetry 10/26/16 10/26/16 10/26/16 19:58 20:00 21:42 Temperature 97.9 F Pulse Rate 98 Respiratory 20 18 19 Rate Blood Pressure 125/72 (mmHg) O2 Sat by Pulse 93 Oximetry 10/26/16 10/26/16 10/27/16 22:42 23:55 01:10 Temperature 98.5 F 98.4 F Pulse Rate 86 70 Respiratory 14 22 16 Rate Blood Pressure 120/64 116/67 (mmHg) O2 Sat by Pulse 94 94 Oximetry 10/27/16 10/27/16 10/27/16 03:23 03:50 04:23 Temperature 98.5 F Pulse Rate 96 Respiratory 15 20 14 Rate Blood Pressure 145/77 (mmHg) O2 Sat by Pulse 92 Oximetry 10/27/16 10/27/16 10/27/16 06:59 07:07 07:58 Temperature 99.0 F Pulse Rate 138 Respiratory 18 18 16 Rate Blood Pressure 138/75 (mmHg) O2 Sat by Pulse 93 Oximetry 10/27/16 13:18 Temperature Pulse Rate Respiratory 16 Rate Blood Pressure (mmHg) O2 Sat by Pulse Oximetry Oxygen Devices in Use Now: None Appearance: Elderly male sitting on the edge of the bed eating jello, NAD Eyes: No Scleral Icterus Ears/Nose/Mouth/Throat: Mucous Membranes Moist Respiratory: Symmetrical Chest Expansion and Respiratory Effort, Clear to Auscultation Cardiovascular: No Edema, - - heart sounds are distant and difficult to appreciate, rapid irregular HR on tele Abdominal: NL Sounds; No Tenderness; No Distention Extremities: No Clubbing, Cyanosis Skin: No Rash or Ulcers, No Nodules or Sclerosis Neurological: Alert and Oriented x 3 Result Diagrams: 10/27/16 06:07 10/27/16 06:07 Assess/Plan/Problems-Billing Mr Moreno is a 76 yo M who has a h/o afib, CKD stage III, CAD, KIT, type II DM and HTN who presented to the ER with c/o abdominal pain and was found to have findings c/w cholecystitis and was also found to be in rapid afib. - Patient Problems (1) Cholecystitis Current Visit: Yes Status: Acute Code(s): K81.9 - CHOLECYSTITIS, UNSPECIFIED SNOMED Code(s): 65024896 Comment: The patient is improving on cipro and flagyl. Plan for surgery is not completely clear. Continue clear liquid diet for now. Await further recommendations from surgery. (2) Afib Current Visit: Yes Status: Acute Code(s): I48.91 - UNSPECIFIED ATRIAL FIBRILLATION SNOMED Code(s): 77519887 Comment: HR remains rapid. He was getting metoprolol 5mg IV q6hr and I added diltiazem 30mg po q6hr without any significant improvement. He uses bystolic for HR control. Will start this med back but I am suspicous his HR may not come under control. May need to consider starting IV diltiazem drip. He is not on anticoagulation at home. (3) CAD (coronary artery disease) Current Visit: Yes Status: Chronic Code(s): I25.10 - ATHSCL HEART DISEASE OF [place] CORONARY ARTERY W/O ANG PCTRS SNOMED Code(s): 23962058 Comment: No c/o chest pain. He remains on ASA and plavix. If he is having surgery these will likely need to be held for at least a few days. (4) Type II diabetes mellitus Current Visit: Yes Status: Acute Comment: Sugars are moderately elevated. Will start lantus 5 units SQ daily as he is not taking his oral hypoglycemics. (5) HTN (hypertension) Current Visit: Yes Status: Chronic Code(s): I10 - ESSENTIAL (PRIMARY) HYPERTENSION SNOMED Code(s): 28440018 Comment: BP well controlled. Continue current regimen. (6) CKD (chronic kidney disease) stage 3, GFR 30-59 ml/min Current Visit: Yes Status: Chronic Code(s): N18.3 - CHRONIC KIDNEY DISEASE, STAGE 3 (MODERATE) SNOMED Code(s): 042256531 Comment: Creatinine is slightly better than baseline. Continues to monitor. (7) DVT prophylaxis Current Visit: Yes Status: Acute Code(s): RRJ8152 - SNOMED Code(s): 529599263 Comment: SQ heparin (8) Full code status Current Visit: Yes Status: Acute Onset Date: 04/02/15 Code(s): Z78.9 - OTHER SPECIFIED HEALTH STATUS SNOMED Code(s): 921637540
[2016-10-27] MEDS ORDERED: CMC: Nebivolol TAB (NF) 2.5 MG TAB PO SCH (14:00)
[2016-10-27] MEDS: Insulin GLARGINE(*) 1 UNITS UNIT SUBCUT SCH (14:53)
[2016-10-27] MEDS: Fluticasone NASAL SPRAY 50MCG* 16 gm SPRAY BTL BOTH NARES SCH (20:27)
[2016-10-27] MEDS: Metoclopramide IV* 5 MG/ML 2 ML VIAL IV PRN (22:36)
[2016-10-28] MEDS: Morphine INJ* 2 MG/ML 1 ML SYRINGE IV PRN ×3 (01:29→19:53)
[2016-10-28] MEDS: metroNIDAZOLE IV 500 MG/100ML* 500 MG/100 ML BAG IVPB SCH ×3 (04:17→19:54)
[2016-10-28] MEDS: Diltiazem TAB* 30 MG PO SCH ×3 (05:12→17:16)
[2016-10-28] MEDS: Heparin VIAL(*) 5000 UNITS/ML VIAL (FIVE THOUSAND) SUBCUT SCH ×3 (05:12→21:26)
[2016-10-28] MEDS: Ondansetron INJ* 2 MG/ML VIAL IV PRN ×2 (05:17→16:25)
[2016-10-28] MEDS: Metoclopramide IV* 5 MG/ML 2 ML VIAL IV PRN (07:57)
[2016-10-28] MEDS: CMC: Nebivolol TAB (NF) 2.5 MG TAB PO SCH (08:25)
[2016-10-28] MEDS: Insulin LISPRO* 1 UNITS UNIT SUBCUT SCH ×3 (08:25→17:18)
[2016-10-28] MEDS: Aspirin EC Low Dose* 81 MG TAB.EC PO SCH (08:25)
[2016-10-28] MEDS: Clopidogrel TAB* 75 MG PO SCH (08:25)
[2016-10-28] MEDS: busPIRone TAB* 10 MG PO SCH ×2 (08:25→19:54)
[2016-10-28] MEDS: COENZYME Q10 100 MG PO SCH (08:26)
[2016-10-28] MEDS: Ciprofloxacin 400MG IVPREMIX(* 400 MG/200 ML BAG IVPB SCH ×2 (10:47→23:06)
--- NOTE | 2016-10-28 10:58 | PN ---
Progress Note - Progress Note Note: Surgery Mr. Moreno is somewhat frustrated by not having a clear sense of the plan. He has been having BM and passing flatus, and reports his pain is 3-4/10 this morning. Vital Signs 10/27/16 10/27/16 10/27/16 13:18 14:18 15:18 Temperature Pulse Rate Respiratory 16 14 16 Rate Blood Pressure (mmHg) O2 Sat by Pulse Oximetry 10/27/16 10/27/16 10/27/16 16:01 17:25 19:40 Temperature 98.8 F 99.8 F Pulse Rate 70 69 64 Respiratory 20 24 Rate Blood Pressure 133/66 145/70 128/61 (mmHg) O2 Sat by Pulse 98 92 Oximetry 10/27/16 10/27/16 10/27/16 20:00 23:43 23:58 Temperature 100.0 F 99.1 F Pulse Rate 69 Respiratory 22 16 Rate Blood Pressure 140/62 (mmHg) O2 Sat by Pulse 92 Oximetry 10/28/16 10/28/16 10/28/16 01:29 02:29 03:08 Temperature 99.9 F Pulse Rate 66 Respiratory 24 24 16 Rate Blood Pressure 136/55 (mmHg) O2 Sat by Pulse 94 Oximetry 10/28/16 10/28/16 10/28/16 06:37 06:38 08:00 Temperature 98.3 F Pulse Rate 67 Respiratory 18 18 16 Rate Blood Pressure 136/59 (mmHg) O2 Sat by Pulse 95 Oximetry 10/28/16 10:47 Temperature Pulse Rate Respiratory 18 Rate Blood Pressure (mmHg) O2 Sat by Pulse Oximetry Abd: distended, good BS, mild tenderness in low abd., without guarding or rebound. Intake & Output 10/27/16 10/28/16 10/28/16 22:59 06:59 14:59 Intake Total 1030 540 600 Balance 1030 540 600 Intake: IVPB 110 100 ABX 110 100 Oral 920 440 600 Other: Estimated Void Medium Date of Last Bowel 10/28/16 Movement # Bowel Movements 1 1 Estimated Stool Amount Large Small # Voids 2 Laboratory Results - last 24 hr 10/27/16 10/27/16 10/27/16 11:44 16:46 20:20 POC Glucose (mg/dL) 163 H 302 H 149 H 10/28/16 07:59 POC Glucose (mg/dL) 245 H A/P: Cholecystitis, improving on abx. I discussed with him the rationale of waiting for the fibrotic phase to pass over the course of 6-8 wks before planning an interval cholecystectomy. Since he is improving this is a reasonable approach, but if he were to worsen the plan would have to change. For now, though, it looks like he is responding to abx, and therefore unlikely to need surgery urgently. We can advance diet to a low fat diet and if tolerates over the next day, could consider change to oral abx tomorrow and then d/c would depend on his overall medical status. Sinan
[2016-10-28] MEDS: Insulin GLARGINE(*) 1 UNITS UNIT SUBCUT SCH (13:39)
[2016-10-28] MEDS ORDERED: Diltiazem TAB* 30 MG PO PRN (17:49)
--- NOTE | 2016-10-28 18:02 | PN ---
Subjective Date of Service: 10/28/16 Interval History: Still has lower abd pain, adequately releived by IV MS. Appetite fair. No bowel c/o. No new c/o. Objective Active Medications: Aspirin (Aspirin Ec Low Dose*) 81 mg PO DAILY [facility] Last Admin: 10/28/16 08:25 Dose: 81 mg Buspirone HCl (Buspar Tab*) 10 mg PO BID [facility] Last Admin: 10/28/16 08:25 Dose: 10 mg Clopidogrel Bisulfate (Plavix Tab*) 75 mg PO DAILY [facility] Last Admin: 10/28/16 08:25 Dose: 75 mg Coenzyme Q10 (Coenzyme Q10 (Nf)) 1 cap PO QAM [facility] Last Admin: 10/28/16 08:26 Dose: Not Given Dextrose (D50w Syringe 50 Ml*) 12.5 gm IV PUSH .FOR FS < 60 - SS PRN PRN Reason: FS < 60 Diltiazem HCl (Cardizem Tab*) 30 mg PO Q6HR PRN PRN Reason: TACHYCARDIA Fluticasone Propionate (Flonase Nasal [place] 50mcg*) 2 spray BOTH NARES BEDTIME [facility] Last Admin: 10/27/16 20:27 Dose: 2 spray Heparin Sodium (Porcine) (Heparin Vial(*)) 5,000 units SUBCUT Q8HR [facility] Last Admin: 10/28/16 13:39 Dose: 5,000 units Metronidazole/Sodium Chloride (Flagyl 500 Mg Ivpb*) 500 mg in 100 mls @ 100 mls /hr IVPB Q8H [facility] Last Admin: 10/28/16 12:11 Dose: 100 mls/hr Ciprofloxacin/Dextrose (Cipro 400 Mg Ivpremix(*)) 400 mg in 200 mls @ 200 mls/ hr IVPB Q12H [facility] Last Admin: 10/28/16 10:47 Dose: 200 mls/hr Insulin Glargine (Lantus(*)) 5 units SUBCUT Q24H [facility] Last Admin: 10/28/16 13:39 Dose: 5 units Insulin Human Lispro (Humalog*) 0 - 15 units SUBCUT AC [facility] PRN Reason: Protocol Last Admin: 10/28/16 17:18 Dose: 6 units Metoclopramide HCl (Reglan Iv*) 5 mg IV Q6H PRN PRN Reason: NAUSEA/VOMITING Last Admin: 10/28/16 07:57 Dose: 5 mg Morphine Sulfate (Morphine Inj (Syringe)*) 2 mg IV Q4H PRN PRN Reason: PAIN Last Admin: 10/28/16 10:47 Dose: 2 mg Nebivolol (Bystolic Tab (Nf)) 10 mg PO QAM [facility] Last Admin: 10/28/16 08:25 Dose: 10 mg Ondansetron HCl (Zofran Inj*) 4 mg IV Q4H PRN PRN Reason: NAUSEA/VOMITING Last Admin: 10/28/16 16:25 Dose: 4 mg Vital Signs 10/27/16 10/27/16 10/27/16 19:40 20:00 23:43 Temperature 99.8 F 100.0 F Pulse Rate 64 69 Respiratory 24 22 16 Rate Blood Pressure 128/61 140/62 (mmHg) O2 Sat by Pulse 92 92 Oximetry 10/27/16 10/28/16 10/28/16 23:58 01:29 02:29 Temperature 99.1 F Pulse Rate Respiratory 24 24 Rate Blood Pressure (mmHg) O2 Sat by Pulse Oximetry 10/28/16 10/28/16 10/28/16 03:08 06:37 06:38 Temperature 99.9 F Pulse Rate 66 Respiratory 16 18 18 Rate Blood Pressure 136/55 (mmHg) O2 Sat by Pulse 94 Oximetry 10/28/16 10/28/16 10/28/16 08:00 10:47 11:47 Temperature 98.3 F 99.2 F Pulse Rate 67 57 Respiratory 16 18 16 Rate Blood Pressure 136/59 130/55 (mmHg) O2 Sat by Pulse 95 94 Oximetry 10/28/16 15:10 Temperature 98.7 F Pulse Rate 59 Respiratory 18 Rate Blood Pressure 138/58 (mmHg) O2 Sat by Pulse 94 Oximetry Oxygen Devices in Use Now: None Appearance: Alert, supine in bed. In fair spirits. Looks comfortable. Eyes: No Scleral Icterus Neck: NL Appearance and Movements; NL JVP, No Thyroid Enlargement, Masses Respiratory: Symmetrical Chest Expansion and Respiratory Effort, Clear to Auscultation, Clear to Percussion Cardiovascular: NL Sounds; No Murmurs; No JVD, No Edema, - - irreg Abdominal: - - Obese, soft. Not tender. Active BS. Skin: No Nodules or Sclerosis Neurological: Alert and Oriented x 3, NL Sensation Result Diagrams: 10/27/16 06:07 10/27/16 06:07 Assess/Plan/Problems-Billing Mr Moreno is a 76 yo M who has a h/o afib, CKD stage III, CAD, KIT, type II DM and HTN who presented to the ER with c/o abdominal pain and was found to have findings c/w cholecystitis and was also found to be in rapid afib. - Patient Problems (1) Cholecystitis Current Visit: Yes Status: Acute Code(s): K81.9 - CHOLECYSTITIS, UNSPECIFIED SNOMED Code(s): 43410945 Comment: The patient is improving on cipro and flagyl. Dr. Russo plans on cholecystectomy in 6-8 wks, recommeds change to oral antibiotics 10/29 if tolerating po OK, then discharge if/when medically clear. (2) Afib Current Visit: Yes Status: Acute Code(s): I48.91 - UNSPECIFIED ATRIAL FIBRILLATION SNOMED Code(s): 59898850 Comment: Now that he is taking his usual dose of nebivolol his HR is in the 60's over 12 hrs since oral diltiazem 30 mg. Diltiazem change to PRN. He is not on anticoagulation at home. (3) Type II diabetes mellitus Current Visit: Yes Status: Acute Comment: Sugars are moderately elevated. Will stop lantus 5 units SQ daily and resume oral glippizide, should re-start metformin on discharge if not sooner. (4) CAD (coronary artery disease) Current Visit: Yes Status: Chronic Code(s): I25.10 - ATHSCL HEART DISEASE OF [place] CORONARY ARTERY W/O ANG PCTRS SNOMED Code(s): 69839440 Comment: No c/o chest pain. He remains on ASA and plavix. If he is having surgery these will likely need to be held for at least a few days. (5) CKD (chronic kidney disease) stage 3, GFR 30-59 ml/min Current Visit: Yes Status: Chronic Code(s): N18.3 - CHRONIC KIDNEY DISEASE, STAGE 3 (MODERATE) SNOMED Code(s): 722409379 Comment: Creatinine is slightly better than baseline. Continues to monitor. (6) HTN (hypertension) Current Visit: Yes Status: Chronic Code(s): I10 - ESSENTIAL (PRIMARY) HYPERTENSION SNOMED Code(s): 74869417 Comment: BP well controlled. Continue nebivolol.
[2016-10-28] MEDS ORDERED: glipiZIDE TAB* 5 MG PO SCH (18:15)
[2016-10-28] MEDS: Fluticasone NASAL SPRAY 50MCG* 16 gm SPRAY BTL BOTH NARES SCH (21:26)
[2016-10-29] MEDS: Morphine INJ* 2 MG/ML 1 ML SYRINGE IV PRN (02:25)
[2016-10-29] MEDS: metroNIDAZOLE IV 500 MG/100ML* 500 MG/100 ML BAG IVPB SCH (03:56)
[2016-10-29] MEDS: Heparin VIAL(*) 5000 UNITS/ML VIAL (FIVE THOUSAND) SUBCUT SCH ×3 (05:11→20:02)
[2016-10-29] MEDS: CMC: Nebivolol TAB (NF) 2.5 MG TAB PO SCH (08:04)
[2016-10-29] MEDS: busPIRone TAB* 10 MG PO SCH ×2 (08:04→19:59)
[2016-10-29] MEDS: glipiZIDE TAB* 5 MG PO SCH ×2 (08:04→17:14)
[2016-10-29] MEDS: Clopidogrel TAB* 75 MG PO SCH (08:04)
[2016-10-29] MEDS: Aspirin EC Low Dose* 81 MG TAB.EC PO SCH (08:04)
[2016-10-29] MEDS: Insulin LISPRO* 1 UNITS UNIT SUBCUT SCH ×3 (08:05→17:14)
[2016-10-29] MEDS: COENZYME Q10 100 MG PO SCH (08:09)
[2016-10-29 11:06] LABS: Hematocrit 39 % (42-52); Hemoglobin 12.8 g/dl (14.0-18.0); Mean Corpuscular HGB Conc 33 g/dl (31-36); Mean Corpuscular Hemoglobin 31 pg (27-31); Mean Corpuscular Volume 93 fL (80-94); Mean Platelet Volume 8 um3 (7.4-10.4); Red Blood Count 4.19 10^6/ul (4.0-5.4); Red Cell Distribution Width 14 % (10.5-15); White Blood Count 14.4 10^3/ul (3.5-10.8)
[2016-10-29] MEDS: HYDROcodone/ACETAMIN 5-325 MG* 1 TAB PO SCH ×4 (11:07→22:08)
[2016-10-29] MEDS: Ciprofloxacin TAB* 500 MG PO SCH ×2 (11:08→19:59)
[2016-10-29 11:09] LABS: Add Diff/Slide Review? Slide Review Added; Comments Flag Yes
[2016-10-29 11:22] LABS: Albumin 2.8 g/dL (3.2-5.2); BUN/Creatinine Ratio 15.3 (8-20); Calcium 8.9 mg/dL (8.6-10.3); EGFR African American 95.9 (>60); EGFR Non-African American 74.6 (>60); Globulin 3.7 g/dL (2-4); Potassium 3.3 mmol/L (3.5-5.0); Total Bilirubin 0.5 mg/dL (0.2-1.0); Total Protein 6.5 g/dL (6.4-8.9)
[2016-10-29] MEDS: metroNIDAZOLE TAB* 250 MG PO SCH ×3 (12:47→19:59)
[2016-10-29] MEDS: Ondansetron INJ* 2 MG/ML VIAL IV PRN (13:36)
--- NOTE | 2016-10-29 14:51 | PN ---
Subjective Date of Service: 10/29/16 Interval History: HOSPITALIST PROGRESS NOTE Patient seen and examined at bedside. He feels better today. Abdominal pain is down to a 3/10, no radiation, not associated with N/V. Tolerating diet well. States he's on hydrocodone 5mg q6h as outpatient for his knees arthritis and feels he's going through withdrawal now as he's only getting Morphine PRN. Family History: Unchanged from Admission Social History: Unchanged from Admission Past Medical History: Unchanged from Admission Objective Active Medications: Hydrocodone Bitart/Acetaminophen ([place] 5-325 Tab*) 1 tab PO Q6H [facility] Last Admin: 10/29/16 11:07 Dose: 1 tab Aspirin (Aspirin Ec Low Dose*) 81 mg PO DAILY [facility] Last Admin: 10/29/16 08:04 Dose: 81 mg Buspirone HCl (Buspar Tab*) 10 mg PO BID [facility] Last Admin: 10/29/16 08:04 Dose: 10 mg Ciprofloxacin (Cipro Tab*) 500 mg PO Q12HR [facility] Last Admin: 10/29/16 11:08 Dose: 500 mg Clopidogrel Bisulfate (Plavix Tab*) 75 mg PO DAILY [facility] Last Admin: 10/29/16 08:04 Dose: 75 mg Coenzyme Q10 (Coenzyme Q10 (Nf)) 1 cap PO QAM [facility] Last Admin: 10/29/16 08:09 Dose: Not Given Dextrose (D50w Syringe 50 Ml*) 12.5 gm IV PUSH .FOR FS < 60 - SS PRN PRN Reason: FS < 60 Diltiazem HCl (Cardizem Tab*) 30 mg PO Q6HR PRN PRN Reason: TACHYCARDIA Fluticasone Propionate (Flonase Nasal [place] 50mcg*) 2 spray BOTH NARES BEDTIME [facility] Last Admin: 10/28/16 21:26 Dose: 2 spray Glipizide (Glucotrol Tab*) 10 mg PO 0800,1700 [facility] Last Admin: 10/29/16 08:04 Dose: 10 mg Heparin Sodium (Porcine) (Heparin Vial(*)) 5,000 units SUBCUT Q8HR [facility] Last Admin: 10/29/16 12:48 Dose: 5,000 units Insulin Human Lispro (Humalog*) 0 - 15 units SUBCUT AC [facility] PRN Reason: Protocol Last Admin: 10/29/16 12:50 Dose: 3 units Metoclopramide HCl (Reglan Iv*) 5 mg IV Q6H PRN PRN Reason: NAUSEA/VOMITING Last Admin: 10/28/16 07:57 Dose: 5 mg Metronidazole (Flagyl Tab*) 500 mg PO TID [facility] Last Admin: 10/29/16 12:51 Dose: Not Given Morphine Sulfate (Morphine Inj (Syringe)*) 2 mg IV Q4H PRN PRN Reason: PAIN Last Admin: 10/29/16 02:25 Dose: 2 mg Nebivolol (Bystolic Tab (Nf)) 10 mg PO QAM [facility] Last Admin: 10/29/16 08:04 Dose: 10 mg Ondansetron HCl (Zofran Inj*) 4 mg IV Q4H PRN PRN Reason: NAUSEA/VOMITING Last Admin: 10/29/16 13:36 Dose: 4 mg Potassium Chloride (Klor Con Er Tab*) 20 meq PO BID [facility] Vital Signs 10/29/16 10/29/16 10/29/16 07:13 07:29 11:07 Temperature 98.9 F Pulse Rate 94 Respiratory 16 16 16 Rate Blood Pressure 132/72 (mmHg) O2 Sat by Pulse 93 Oximetry 10/29/16 10/29/16 11:39 13:07 Temperature 98.4 F Pulse Rate 64 Respiratory 22 19 Rate Blood Pressure 112/66 (mmHg) O2 Sat by Pulse 98 Oximetry Oxygen Devices in Use Now: None Appearance: Pleasant elderly male sitting up in recliner in [facility]. Eyes: No Scleral Icterus Ears/Nose/Mouth/Throat: Mucous Membranes Moist Neck: Trachea Midline Respiratory: Symmetrical Chest Expansion and Respiratory Effort, Clear to Auscultation Cardiovascular: NL Sounds; No Murmurs; No JVD, RRR Abdominal: - - Obese, soft, mild RUQ tenderness, no guarding or rebound, BS+. Extremities: No Edema, - - bilateral knees surgical scars Neurological: Alert and Oriented x 3, NL Muscle Strength and Tone Lines/Tubes/Other Access: Clean, Dry and Intact Peripheral IV Nutrition: Taking PO's Result Diagrams: 10/29/16 10:52 10/29/16 10:52 Assess/Plan/Problems-Billing Mr Moreno is a 76 yo M who has a h/o afib, CKD stage III, CAD, KIT, type II DM and HTN who presented to the ER with c/o abdominal pain and was found to have findings c/w cholecystitis and was also found to be in rapid afib. - Patient Problems (1) Sepsis Comment: - Present on admission. - Patient met sepsis criteria with tachycardia and leukocytosis. - Source is acute cholecystitis. (2) Cholecystitis Comment: - Improving on Cipro and Metronidazole - will change to PO and see if he can tolerate. - Surgical plan is for elective cholecystectomy in 6-8 wks - patient is interested in seeing [facility] surgeon who performed his 's surgery. (3) Afib Comment: - Controlled on Nebivolol. - Not on AC as outpatient. (4) CAD (coronary artery disease) Comment: - No c/o chest pain. - He remains on ASA and plavix. (5) Type II diabetes mellitus Comment: - Change diet to consistent carb, continue glipizide and Lispro SS. (6) HTN (hypertension) Comment: - BP well controlled with nebivolol. (7) DVT prophylaxis Comment: - SQ heparin. (8) Full code status Status and Disposition: Inpatient. Anticipate d/c in AM if tolerating PO antibiotics.
[2016-10-29] MEDS: Potassium Chlor TAB* 20 MEQ TAB.ER PO SCH (19:58)
[2016-10-29] MEDS: Fluticasone NASAL SPRAY 50MCG* 16 gm SPRAY BTL BOTH NARES SCH (20:00)
[2016-10-30] MEDS: HYDROcodone/ACETAMIN 5-325 MG* 1 TAB PO SCH ×4 (05:07→19:56)
[2016-10-30] MEDS: Heparin VIAL(*) 5000 UNITS/ML VIAL (FIVE THOUSAND) SUBCUT SCH ×3 (05:07→21:21)
[2016-10-30] MEDS: Potassium Chlor TAB* 20 MEQ TAB.ER PO SCH ×2 (09:05→16:50)
[2016-10-30] MEDS: metroNIDAZOLE TAB* 250 MG PO SCH ×3 (09:05→19:55)
[2016-10-30] MEDS: Ciprofloxacin TAB* 500 MG PO SCH ×2 (09:05→19:56)
[2016-10-30] MEDS: busPIRone TAB* 10 MG PO SCH ×2 (09:05→16:50)
[2016-10-30] MEDS: CMC: Nebivolol TAB (NF) 2.5 MG TAB PO SCH (09:05)
[2016-10-30] MEDS: Clopidogrel TAB* 75 MG PO SCH (09:05)
[2016-10-30] MEDS: Insulin LISPRO* 1 UNITS UNIT SUBCUT SCH ×3 (09:05→16:49)
[2016-10-30] MEDS: glipiZIDE TAB* 5 MG PO SCH ×2 (09:06→16:50)
[2016-10-30] MEDS: COENZYME Q10 100 MG PO SCH (09:06)
[2016-10-30] MEDS: Aspirin EC Low Dose* 81 MG TAB.EC PO SCH (09:06)
[2016-10-30] MEDS: Ondansetron INJ* 2 MG/ML VIAL IV PRN (10:46)
--- NOTE | 2016-10-30 16:35 | PN ---
Subjective Date of Service: 10/30/16 Interval History: HOSPITALIST PROGRESS NOTE Patient seen and examined at bedside. Very anxious about his discharge plan. Abdominal pain is better, but he feels very weak, fatigues easily, and feels he would not be able to manage at home. Family History: Unchanged from Admission Social History: Unchanged from Admission Past Medical History: Unchanged from Admission Objective Active Medications: Hydrocodone Bitart/Acetaminophen ([place] 5-325 Tab*) 1 tab PO ACHS [facility] Aspirin (Aspirin Ec Low Dose*) 81 mg PO DAILY [facility] Last Admin: 10/30/16 09:06 Dose: 81 mg Buspirone HCl (Buspar Tab*) 10 mg PO 0900,1700 [facility] Ciprofloxacin (Cipro Tab*) 500 mg PO Q12HR [facility] Last Admin: 10/30/16 09:05 Dose: 500 mg Clopidogrel Bisulfate (Plavix Tab*) 75 mg PO DAILY [facility] Last Admin: 10/30/16 09:05 Dose: 75 mg Dextrose (D50w Syringe 50 Ml*) 12.5 gm IV PUSH .FOR FS < 60 - SS PRN PRN Reason: FS < 60 Diltiazem HCl (Cardizem Tab*) 30 mg PO Q6HR PRN PRN Reason: TACHYCARDIA Fluticasone Propionate (Flonase Nasal [place] 50mcg*) 2 spray BOTH NARES BEDTIME [facility] Last Admin: 10/29/16 20:00 Dose: 2 spray Glipizide (Glucotrol Tab*) 10 mg PO 0800,1700 [facility] Last Admin: 10/30/16 09:06 Dose: 10 mg Heparin Sodium (Porcine) (Heparin Vial(*)) 5,000 units SUBCUT Q8HR [facility] Last Admin: 10/30/16 14:29 Dose: 5,000 units Insulin Human Lispro (Humalog*) 0 - 15 units SUBCUT AC [facility] PRN Reason: Protocol Last Admin: 10/30/16 12:00 Dose: 12 units Metoclopramide HCl (Reglan Iv*) 5 mg IV Q6H PRN PRN Reason: NAUSEA/VOMITING Last Admin: 10/28/16 07:57 Dose: 5 mg Metronidazole (Flagyl Tab*) 500 mg PO TID [facility] Last Admin: 10/30/16 14:29 Dose: 500 mg Morphine Sulfate (Morphine Inj (Syringe)*) 2 mg IV Q4H PRN PRN Reason: PAIN Last Admin: 10/29/16 02:25 Dose: 2 mg Nebivolol (Bystolic Tab (Nf)) 10 mg PO QAM [facility] Last Admin: 10/30/16 09:05 Dose: 10 mg Ondansetron HCl (Zofran Inj*) 4 mg IV Q4H PRN PRN Reason: NAUSEA/VOMITING Last Admin: 10/30/16 10:46 Dose: 4 mg Potassium Chloride (Klor Con Er Tab*) 20 meq PO 0900,1700 [facility] Vital Signs 10/30/16 10/30/16 10/30/16 10:46 12:46 13:17 Temperature 98.9 F Pulse Rate 59 Respiratory 16 16 24 Rate Blood Pressure 116/57 (mmHg) O2 Sat by Pulse 97 Oximetry Oxygen Devices in Use Now: None Appearance: Pleasant elderly male sitting up in a recliner in [place]. Eyes: No Scleral Icterus Ears/Nose/Mouth/Throat: Mucous Membranes Moist Neck: Trachea Midline Respiratory: Symmetrical Chest Expansion and Respiratory Effort, Clear to Auscultation Cardiovascular: NL Sounds; No Murmurs; No JVD, RRR Abdominal: - - Obese, soft, mild RUQ tenderness, no guarding or rebound, BS+ Extremities: No Edema Neurological: Alert and Oriented x 3, NL Muscle Strength and Tone Lines/Tubes/Other Access: Clean, Dry and Intact Peripheral IV Nutrition: Taking PO's Result Diagrams: 10/29/16 10:52 10/29/16 10:52 Assess/Plan/Problems-Billing Mr Moreno is a 76 yo M who has a h/o afib, CKD stage III, CAD, KIT, type II DM and HTN who presented to the ER with c/o abdominal pain and was found to have findings c/w cholecystitis and was also found to be in rapid afib. - Patient Problems (1) Sepsis Comment: - Present on admission. - Patient met sepsis criteria with tachycardia and leukocytosis. - Source is acute cholecystitis. (2) Cholecystitis Comment: - Improving on Cipro and Metronidazole - will change to PO and see if he can tolerate. - Surgical plan is for elective cholecystectomy in 6-8 wks - patient is interested in seeing [facility] surgeon who performed his 's surgery. (3) Afib Comment: - Controlled on Nebivolol. - Not on AC as outpatient. - Had short burst of Afib earlier today, resolved without interventions. (4) CAD (coronary artery disease) Comment: - No c/o chest pain. - He remains on ASA and plavix. (5) Type II diabetes mellitus Comment: - Continue consistent carb diet, glipizide, and Lispro SS. (6) HTN (hypertension) Comment: - BP well controlled with nebivolol. (7) DVT prophylaxis Comment: - SQ heparin. (8) Full code status (9) Physical deconditioning Comment: - PT/OT evaluations appreciated - patient may benefit of rehab stay prior to his return home. Status and Disposition: Inpatient.
[2016-10-30] MEDS: Fluticasone NASAL SPRAY 50MCG* 16 gm SPRAY BTL BOTH NARES SCH (20:16)
[2016-10-31 05:51] LABS: Hematocrit 38 % (42-52); Hemoglobin 12.6 g/dl (14.0-18.0); Mean Corpuscular HGB Conc 33 g/dl (31-36); Mean Corpuscular Hemoglobin 31 pg (27-31); Mean Corpuscular Volume 93 fL (80-94); Mean Platelet Volume 8 um3 (7.4-10.4); Red Cell Distribution Width 14 % (10.5-15); White Blood Count 10.8 10^3/ul (3.5-10.8)
[2016-10-31 06:01] LABS: C Reactive Protein 88.85 mg/L (< 5.00); EGFR African American 108.6 (>60); EGFR Non-African American 84.4 (>60); Potassium 3.8 mmol/L (3.5-5.0)
[2016-10-31] MEDS: Heparin VIAL(*) 5000 UNITS/ML VIAL (FIVE THOUSAND) SUBCUT SCH ×3 (06:03→20:29)
[2016-10-31] MEDS: Insulin LISPRO* 1 UNITS UNIT SUBCUT SCH ×3 (08:15→17:25)
[2016-10-31] MEDS: glipiZIDE TAB* 5 MG PO SCH ×2 (08:17→17:25)
[2016-10-31] MEDS: Ciprofloxacin TAB* 500 MG PO SCH ×2 (08:17→20:28)
[2016-10-31] MEDS: Aspirin EC Low Dose* 81 MG TAB.EC PO SCH (08:17)
[2016-10-31] MEDS: Clopidogrel TAB* 75 MG PO SCH (08:18)
[2016-10-31] MEDS: metroNIDAZOLE TAB* 250 MG PO SCH ×3 (08:18→20:29)
[2016-10-31] MEDS: busPIRone TAB* 10 MG PO SCH ×2 (08:18→17:25)
[2016-10-31] MEDS: Potassium Chlor TAB* 20 MEQ TAB.ER PO SCH ×2 (08:18→17:24)
[2016-10-31] MEDS: HYDROcodone/ACETAMIN 5-325 MG* 1 TAB PO SCH ×4 (08:18→20:27)
[2016-10-31] MEDS: CMC: Nebivolol TAB (NF) 2.5 MG TAB PO SCH (08:19)
[2016-10-31] MEDS: Ondansetron INJ* 2 MG/ML VIAL IV PRN (10:27)
[2016-10-31] MEDS: Prochlorperazine TAB* 5 MG PO SCH ×2 (12:51→18:25)
--- NOTE | 2016-10-31 14:26 | PN ---
Progress Note - Progress Note Note: Surgery followup S: States he feels weak; being seen by PT. Some residual pain RUQ, but not very significant. Stools loose. On po Cipro and Flagyl. Sukhjinder diet. O: Vital Signs - 8 hr 10/31/16 10/31/16 10/31/16 07:58 08:00 08:18 Temperature 98.3 F Pulse Rate 93 Respiratory 24 16 18 Rate Blood Pressure 131/60 (mmHg) O2 Sat by Pulse 98 Oximetry 10/31/16 10/31/16 10/31/16 10:18 11:42 12:39 Temperature 98.7 F Pulse Rate 63 Respiratory 16 24 16 Rate Blood Pressure 137/53 (mmHg) O2 Sat by Pulse 97 Oximetry Intake and Output Last 24 Hours 10/29/16 10/30/16 10/31/16 11/01/16 06:59 06:59 06:59 06:59 Intake Total 2862 590 1450 120 Output Total 0 0 Balance 2862 590 1450 120 Intake: IVPB 742 ABX 300 Cipro 219 Flagyl 223 Oral 2120 590 1450 120 Output: Urine 0 0 Other: Estimated Void Large Medium Date of Last Bowel 10/30/16 Movement # Bowel Movements 0 1 2 Estimated Stool Amount Medium Small # Voids 0 2 1 Heart:reg Lungs: clear Abd: obese; soft; mild tenderness RUQ; remainder soft, nontender A: cholecystitis, improving P: cont po abx; consider for cholecystectomy after acute inflammation has resolved; patient states he prefers to have the surgery done in [place] w/ Dr. Kellogg. Our contact info is in his discharge packet. Recall prn.
--- NOTE | 2016-10-31 14:50 | PN ---
Subjective Date of Service: 10/31/16 Interval History: HOSPITALIST PROGRESS NOTE Patient seen and examined at bedside. He's discouraged about his condition today. Abdominal pain is controlled, tolerating diet well, but his major complaint is fatigue. Family History: Unchanged from Admission Social History: Unchanged from Admission Past Medical History: Unchanged from Admission Objective Active Medications: Hydrocodone Bitart/Acetaminophen ([place] 5-325 Tab*) 1 tab PO ACHS [facility] Last Admin: 10/31/16 12:39 Dose: 1 tab Aspirin (Aspirin Ec Low Dose*) 81 mg PO DAILY [facility] Last Admin: 10/31/16 08:17 Dose: 81 mg Buspirone HCl (Buspar Tab*) 10 mg PO 0900,1700 [facility] Last Admin: 10/31/16 08:18 Dose: 10 mg Ciprofloxacin (Cipro Tab*) 500 mg PO Q12HR [facility] Last Admin: 10/31/16 08:17 Dose: 500 mg Clopidogrel Bisulfate (Plavix Tab*) 75 mg PO DAILY [facility] Last Admin: 10/31/16 08:18 Dose: 75 mg Dextrose (D50w Syringe 50 Ml*) 12.5 gm IV PUSH .FOR FS < 60 - SS PRN PRN Reason: FS < 60 Diltiazem HCl (Cardizem Tab*) 30 mg PO Q6HR PRN PRN Reason: TACHYCARDIA Fluticasone Propionate (Flonase Nasal [place] 50mcg*) 2 spray BOTH NARES BEDTIME [facility] Last Admin: 10/30/16 20:16 Dose: 2 spray Glipizide (Glucotrol Tab*) 10 mg PO 0800,1700 [facility] Last Admin: 10/31/16 08:17 Dose: 10 mg Heparin Sodium (Porcine) (Heparin Vial(*)) 5,000 units SUBCUT Q8HR [facility] Last Admin: 10/31/16 12:52 Dose: 5,000 units Insulin Human Lispro (Humalog*) 0 - 15 units SUBCUT AC [facility] PRN Reason: Protocol Last Admin: 10/31/16 12:38 Dose: 3 units Metronidazole (Flagyl Tab*) 500 mg PO TID [facility] Last Admin: 10/31/16 12:51 Dose: 500 mg Morphine Sulfate (Morphine Inj (Syringe)*) 2 mg IV Q4H PRN PRN Reason: PAIN Last Admin: 10/29/16 02:25 Dose: 2 mg Nebivolol (Bystolic Tab (Nf)) 10 mg PO QAM [facility] Last Admin: 10/31/16 08:19 Dose: 10 mg Ondansetron HCl (Zofran Inj*) 4 mg IV Q4H PRN PRN Reason: NAUSEA/VOMITING Last Admin: 10/31/16 10:27 Dose: 4 mg Potassium Chloride (Klor Con Er Tab*) 20 meq PO 0900,1700 [facility] Last Admin: 10/31/16 08:18 Dose: 20 meq Prochlorperazine (Compazine Tab*) 5 mg PO AC [facility] Last Admin: 10/31/16 12:51 Dose: 5 mg Vital Signs 10/31/16 10/31/16 10/31/16 10:18 11:42 12:39 Temperature 98.7 F Pulse Rate 63 Respiratory 16 24 16 Rate Blood Pressure 137/53 (mmHg) O2 Sat by Pulse 97 Oximetry Oxygen Devices in Use Now: None Appearance: Elderly male sitting up in [facility]. Eyes: No Scleral Icterus Ears/Nose/Mouth/Throat: Mucous Membranes Moist Neck: Trachea Midline Respiratory: Symmetrical Chest Expansion and Respiratory Effort, Clear to Auscultation Cardiovascular: NL Sounds; No Murmurs; No JVD, RRR Abdominal: - - Soft, mild RUQ tenderness, no guarding or rebound, BS+ Extremities: No Edema Neurological: Alert and Oriented x 3, NL Muscle Strength and Tone Lines/Tubes/Other Access: Clean, Dry and Intact Peripheral IV Nutrition: Taking PO's Result Diagrams: 10/31/16 05:26 10/31/16 05:26 Assess/Plan/Problems-Billing Mr Moerno is a 76 yo M who has a h/o afib, CKD stage III, CAD, KIT, type II DM and HTN who presented to the ER with c/o abdominal pain and was found to have findings c/w cholecystitis and was also found to be in rapid afib. - Patient Problems (1) Sepsis Comment: - Present on admission. - Patient met sepsis criteria with tachycardia and leukocytosis. - Source is acute cholecystitis. (2) Cholecystitis Comment: - Improving on Cipro and Metronidazole - will change to PO and see if he can tolerate. - Surgical plan is for elective cholecystectomy in 6-8 wks - patient is interested in seeing [facility] surgeon who performed his 's surgery. (3) Afib Comment: - Controlled on Nebivolol. - Not on AC as outpatient. - Had short burst of Afib yesterday, resolved without interventions. (4) CAD (coronary artery disease) Comment: - No c/o chest pain. - He remains on ASA and plavix. (5) Type II diabetes mellitus Comment: - Continue consistent carb diet, glipizide, and Lispro SS. (6) HTN (hypertension) Comment: - BP well controlled with nebivolol. (7) DVT prophylaxis Comment: - SQ heparin. (8) Full code status (9) Physical deconditioning Comment: - PT/OT evaluations appreciated - patient may benefit of rehab stay prior to his return home, but not interested in SNF placement at this point. Status and Disposition: Inpatient. Anticipate d/c in AM.
[2016-10-31] MEDS: Fluticasone NASAL SPRAY 50MCG* 16 gm SPRAY BTL BOTH NARES SCH (20:32)
[2016-11-01] MEDS: Morphine INJ* 2 MG/ML 1 ML SYRINGE IV PRN ×2 (00:28→04:35)
[2016-11-01] MEDS: Heparin VIAL(*) 5000 UNITS/ML VIAL (FIVE THOUSAND) SUBCUT SCH (06:33)
[2016-11-01] MEDS: Insulin LISPRO* 1 UNITS UNIT SUBCUT SCH ×2 (07:48→12:21)
[2016-11-01] MEDS: metroNIDAZOLE TAB* 250 MG PO SCH (08:21)
[2016-11-01] MEDS: Aspirin EC Low Dose* 81 MG TAB.EC PO SCH (08:22)
[2016-11-01] MEDS: HYDROcodone/ACETAMIN 5-325 MG* 1 TAB PO SCH ×2 (08:22→12:20)
[2016-11-01] MEDS: Potassium Chlor TAB* 20 MEQ TAB.ER PO SCH (08:23)
[2016-11-01] MEDS: Prochlorperazine TAB* 5 MG PO SCH ×2 (08:24→12:19)
[2016-11-01] MEDS: Ciprofloxacin TAB* 500 MG PO SCH (08:24)
[2016-11-01] MEDS: glipiZIDE TAB* 5 MG PO SCH (08:26)
[2016-11-01] MEDS: Clopidogrel TAB* 75 MG PO SCH (08:26)
[2016-11-01] MEDS: busPIRone TAB* 10 MG PO SCH (09:02)
[2016-11-01 11:57] VITALS: BP 115/54
[2016-11-01] MEDS: CMC: Nebivolol TAB (NF) 2.5 MG TAB PO SCH (12:19)
--- NOTE | 2016-11-01 23:15 | DS ---
DISCHARGE SUMMARY: DATE OF ADMISSION: 10/26/16 DATE OF DISCHARGE: 11/01/16 DISCHARGE DIAGNOSES: 1. Sepsis, present on admission. 2. Acute cholecystitis. 3. Atrial fibrillation with rapid ventricular rate. 4. Leukocytosis. 5. Hypokalemia. SECONDARY DIAGNOSES: 1. Coronary artery disease, status post stent x3. 2. Obstructive sleep apnea, on CPAP. 3. Type 2 diabetes. 4. Hypertension. 5. Benign prostatic hyperplasia. 6. Chronic kidney disease, stage 3. 7. Subdural hematoma. 8. Atrial fibrillation, not on anticoagulation. MEDICATIONS: 1. Nebivolol 10 mg p.o. q.a.m. 2. Multivitamin with minerals 2 capsules p.o. daily. 3. Beclomethasone nasal spray, 2 sprays to both nares at bedtime. 4. Alirocumab 75 mg subcutaneously every 14 days. 5. Aspirin 81 mg p.o. daily. 6. Magnesium oxide 250 mg p.o. q.a.m.. 7. Glucosamine and chondroitin 1 tablet p.o. b.i.d. 8. Fenofibrate 48 mg p.o. q.p.m. 9. Nexium 40 mg p.o. daily. 10. Dutasteride 0.5 mg p.o. daily. 11. Super B complex 1 tablet p.o. q.a.m.. 12. BuSpar 10 mg p.o. b.i.d. 13. Lovaza 1 g p.o. t.i.d. 14. Glipizide/metformin 5/500 mg 2 tablets p.o. b.i.d. 15. CoQ10 100 mg p.o. q.a.m.. 16. Hydrocodone/acetaminophen 5/325 mg 1 tablet p.o. 4 times a day. 17. Plavix 75 mg p.o. daily. New medications: 1. Prochlorperazine 5 mg p.o. before meals. 2. Potassium chloride 20 mEq p.o. daily. 3. Metronidazole 500 mg p.o. t.i.d. for 14 days. 4. Ciprofloxacin 500 mg p.o. every 12 hours for 14 days. HOSPITAL COURSE: Mr. Moreno is a 76-year-old male with past medical history as stated above who presented to the emergency room with complaints of epigastric pain radiating to the right upper quadrant associated with nausea and dry heaves. For more details about his presentation, I refer you to his history and physical. The patient met sepsis criteria on admission with tachycardia and leukocytosis. He underwent a CT of the abdomen and pelvis that showed severe inflammatory reaction surrounding the gallbladder with potential cholelithiasis and involvement of the hepatic flexure, proximal transverse colon as well as the gastric antrum to the second portion of the duodenum. There was hepatic steatosis, trace ascites and a 2- mm stone at the right UVJ but with no hydronephrosis. An abdominal ultrasound showed a distended gallbladder with thickened wall and sludge suggesting the possibility of a calculus cholecystitis. The patient was admitted with the impression of sepsis secondary to cholecystitis and started on empiric antibiotics. He was seen in consultation by General Surgery (Dr. Wooten) and he felt that the patient's presentation was suggestive of an acute cholecystitis but differential diagnosis included colitis as well as enteritis. He felt that the patient was out of the window to look towards urgent laparoscopic cholecystectomy. He recommended antibiotics and admission to the hospital. The patient continued to improve slowly. He remained afebrile and he did have episodes of atrial fibrillation with rapid ventricular rate that responded to nebivolol and diltiazem. His pain improved slowly. He was able to tolerate a low-fat diet. He was seen in followup by General Surgery (Dr. Russo) and she felt that the best course of action would be to continue antibiotics. She describes the rationality of waiting for the phase to pass over the course of 6 to 8 weeks before planning a cholecystectomy. He continued to respond well and was switched to oral antibiotics that he was able to tolerate. The patient was felt to be very fatigued and deconditioned. He was seen by PT and OT and recommendation was for placement in rehab before going home, but the patient and his family were adamant that the patient would not go to any of the local rehabilitation facilities. performance manager and social services designee assisted with the discharge plan, so the plan is for him to go home today. [place], was going to stay in the home taking care of him and his who also had surgery recently. Visiting nurse services were arranged and he will have physical therapy and occupational therapy at home. He will need followup with Dr. Leo next week as he will need medical optimization prior to surgery. At this point, his amlodipine, ramipril and Inspra were discontinued due to hypotension. Nebivolol was the only antihypertensive continued. He will also need to have his Plavix and aspirin discontinued when his surgery date is scheduled. The patient has a history of atrial fibrillation and I believe he is not on systemic anticoagulation at this point due to his history of subdural hematoma and he is already on aspirin and Plavix as outpatient, so I believe it is not safe to start any systemic anticoagulation at this point. The patient is also interested in seeing the surgeon who performed his 's surgery in [place], Dr. Francis Kellogg, so he will make arrangements to follow up with him in the near future as the patient understands that he should have his gallbladder removed in 6 to 8 weeks. He is medically stable to be discharged at this time and he received education about the symptoms that should prompt his return to the emergency room. His daughter was also present during our conversation. PHYSICAL EXAMINATION: Vital Signs: Temperature 99.2, heart rate is 63, respiratory rate is 16, oxygen saturation 97% on room air, and blood pressure is 103/44. General: The patient is a pleasant elderly male, sitting up in a recliner, in no acute distress. CVS: Normal S1 and S2. Regular rate and rhythm. Chest: Breath sounds bilaterally, no added sounds. Abdomen is obese, soft with mild right upper quadrant tenderness but no guarding, no rebound. Bowel sounds are present. Extremities: No edema. Neuro: He is alert, awake, and oriented x3. Able to move all 4 extremities. DIET: Consistent carb, low-fat diet. ACTIVITY: As tolerated. DISPOSITION: To home. STATUS WHILE IN THE HOSPITAL: Inpatient. Please keep in mind this is a summarized version of this patient's hospital stay. If you need more information, please feel free to call me at [phone] or please obtain the full medical records. TIME SPENT: Approximately 50 minutes was spent to complete this discharge. CC: Dr. Leo; Masoud Wooten MD; Dr. Francis Kellogg, [facility], phone #[phone]* [id number]/CPS #: [id number]
== END 2016-11-01 14:06 | disposition home or self-care (01) | DRG 872 ==
LOC: ED 07:17 → MEDTELE 12:05
PROVIDERS: ADMIT Hospitalist; ATTEND Internal Medicine
DX: A41.9 Sepsis, unspecified organism (principal); K81.0 Acute cholecystitis; E11.22 Type 2 diabetes mellitus with diabetic chronic kidney disease; R18.8 Other ascites; N18.3 Chronic kidney disease, stage 3 (moderate); E88.81 Metabolic syndrome and other insulin resistance; N20.1 Calculus of ureter; I25.10 Atherosclerotic heart disease of native coronary artery without angina pectoris; E78.5 Hyperlipidemia, unspecified; G47.33 Obstructive sleep apnea (adult) (pediatric); K21.9 Gastro-esophageal reflux disease without esophagitis; I12.9 Hypertensive chronic kidney disease with stage 1 through stage 4 chronic kidney disease, or unspecified chronic kidney disease; M17.0 Bilateral primary osteoarthritis of knee; F41.9 Anxiety disorder, unspecified; Z96.1 Presence of intraocular lens; M06.9 Rheumatoid arthritis, unspecified; E66.9 Obesity, unspecified; I48.91 Unspecified atrial fibrillation; K76.0 Fatty (change of) liver, not elsewhere classified; N40.0 Benign prostatic hyperplasia without lower urinary tract symptoms; E87.6 Hypokalemia; Z88.1 Allergy status to other antibiotic agents; Z88.8 Allergy status to other drugs, medicaments and biological substances; Z95.5 Presence of coronary angioplasty implant and graft; I25.2 Old myocardial infarction; Z98.1 Arthrodesis status; Z98.42 Cataract extraction status, left eye; Z82.49 Family history of ischemic heart disease and other diseases of the circulatory system; Z83.3 Family history of diabetes mellitus; Z79.82 Long term (current) use of aspirin; Z68.32 Body mass index [BMI] 32.0-32.9, adult
CPT/HCPCS: 36415; 74177; 76705; 80048; 80053; 81003; 81015; 82140; 82150; 83605; 83690; 83735; 83880; 84134; 84484; 85025; 85060; 86140; 93005; 94760; A9270-GY; J0744; J1644; J2270; J2405; Q9967

== ENCOUNTER 2019-08-20 19:44 | Emergency (ER) | payer MEDICARE, BC ==
--- OUTSIDE RECORDS SUMMARY | 2019-08-20 19:55 | XMS REPORT | Continuity of Care Document ---
:1940 External Reference #:[id number] Author Name Ad Alvarez MD (transmitted by agent of provider Annamaria Zhao) Address [address] [place] [id number] Care Team Providers Name Role Phone Tyrone Leo MD - Family Medicine Care Team Information Doula [phone] Mil Laughlin MD - Nephrology Care Team Information Doula [phone] Problems Active Problems Provider Date Coronary arteriosclerosis Adrien Brown M.D. Onset: 01/21/2012 Type 2 diabetes mellitus Adrien Brown M.D. Onset: 01/21/2012 Mitral valve disorder Adrien Brown M.D. Onset: 01/21/2012 Pure hypercholesterolemia Adrien Brown M.D. Onset: 01/21/2012 Benign essential hypertension Vicky Estrella N.PCarlos Onset: 02/25/2012 Obstructive sleep apnea syndrome Valdemar Puente M.D. Onset: 04/01/2014 Subdural hemorrhage Vic Vergara M.D. Onset: 04/26/2015 Essential hypertension BRITTANY Ortiz Onset: 05/18/2015 Obesity Carley Garcia MD Onset: 05/16/2016 Social History Type Date Description Comments Sex Unknown Tobacco Use Start: Unknown Never Smoked Cigarettes Smoking Status Reviewed: 07/29/19 Never Smoked Cigarettes ETOH Use Denies alcohol use Tobacco Use Start: Unknown Patient has never smoked Recreational Drug Use Denies Drug Use Enjoy Exercising Does not enjoy exercising Exercise Type/Frequency Exercises sporadically Allergies, Adverse Reactions, Alerts Active Allergies Reaction Severity Comments Date Keflex hives 07/12/2010 Yeast-related hives 07/12/2010 Bakers Yeast 05/12/2019 Lipitor muscle aches 07/12/2010 Pravachol muscle aches 07/12/2010 Crestor muscle aches 07/12/2010 Tricor ? myalgias ? 02/19/2013 Zetia myalgias. 12/21/2014 Brilinta dyspnea Mild 01/18/2016 Strawberries Nausea and Vomiting 12/31/2017 Praluent 04/07/2019 Keflex Oral Capsule 250 MG 05/12/2019 Bakers Yeast 05/12/2019 Medications Active Medications SIG Qnty Indications Ordering Date Provider Cpap Mask And pls provide 1units G47.33 Carleyryan Baconali, 05/21/2019 Supplies necessary cpap MD Device supplies, mask to fit, tubing, head gear, filters, humidifier etc Ramipril take one cap by 180caps Veronica Russo, 12/15/2018 5mg Capsules mouth twice daily N.P. Simvastatin 1 tab by mouth 90tabs E78.00 Adrien Malcolm 12/15/2018 5mg daily Yoko Brown Tablets Co Q-10 1 by mouth every 90caps Veronica Russo, 10/07/2018 200mg day N.P. Capsules Bystolic 1 tab by mouth 90tabs R53.83 Adrien Malcolm 09/17/2018 5mg Tablets daily Yoko Brown Glucosamine 1 cap po daily 30caps Adrien Malcolm 07/12/2010 Chondroitin Yoko Brown Capsules Aspir-81 1 by mouth every 30tabs Adrien Malcolm 07/12/2010 81mg Tablets day non-enteric Yoko Brown DR coated Esomeprazole Sodium 1 by mouth every Unknown day 40mg Solution Rec Multi Vitamin 1 by mouth every Unknown day Tablets Clobetasol apply to affected Unknown Propionate area every day 0.05% Cream Avodart 1 po daily Unknown 0.5mg Inspra 1 tab by mouth 90tabs Veronica Russo, 25mg Tablets every day N.P. Kaycee III Epa+Dha 1 po tid Unknown 1000mg Capsules Potassium Chloride 1 by mouth every Unknown ER day 20Meq Tablets ER Flomax 1 by mouth every Unknown 0.4mg Capsules day Ared 2 po qd Unknown Packet Cpap nightly Unknown Device Vitamin B Complex 100 mg tab three 30tabs Unknown times daily Tablets Buspirone HCL 1 by mouth twice a Unknown 10mg day Am/PM Tablets Glipizide/Metformin 2 tablet po bid Unknown HCL Am/PM 5-500mg Tablets Hydrocodone-Acetamin 1 by mouth 5-6 30tabs Unknown ophen times daily 5-325mg Tablets (Maintenance drug. Pt states he takes consistently due to arthritic pain, prescribed Shallish) Nitrostat one sl q5min up to 25tabs Adrien Malcolm 0.4mg 3 doses as needed Yoko Brown Tablets Sub Beconase Aq 2 sprays each 1units Unknown nostril twice daily 42mcg/[place] prn Suspension Immunizations Description No Information Available Vital Signs Date Vital Result Comment 07/29/2019 1:39pm Height 66.5 inches 5'6.50" Weight 197.00 lb Heart Rate 67 /min BP Systolic Sitting 179 mmHg L arm BP Diastolic Sitting 83 mmHg L arm O2 % BldC Oximetry 95 % BMI (Body Mass Index) 31.3 kg/m2 05/21/2019 1:05pm Height 66.5 inches 5'6.50" Weight 200.00 lb Heart Rate 64 /min BP Systolic 128 mmHg BP Diastolic 72 mmHg O2 % BldC Oximetry 97 % BMI (Body Mass Index) 31.8 kg/m2 Results Description No Information Available Procedures Date Code Description Status 04/07/2019 77522 EKG Tracing & Interpretation Completed Medical Devices Description No Information Available Encounters Type Date Location Provider Dx Diagnosis Office Visit 05/21/2019 [facility] Jose, G47.33 Obstructive sleep 1:[facility]p [facility] (adult) [employer] [facility] (pediatric) Office Visit 04/07/2019 [facility] Adrien Malcolm I25.10 Athscl heart 1:00p Yoko Brown disease of [place] coronary artery w/o ang pctrs I49.3 Ventricular premature depolarization E78.00 Pure hypercholesterolemia, unspecified I10 Essential (primary) hypertension I73.9 Peripheral vascular disease, unspecified Assessments Date Code Description Provider 07/29/2019 E11.22 Type 2 diabetes mellitus with diabetic Ad Alvarez MD chronic kidney disease 07/29/2019 N18.2 Chronic kidney disease, stage 2 (mild) Ad Alvarez MD 07/29/2019 R80.9 Proteinuria, unspecified Ad Alvarez MD 05/21/2019 G47.33 Obstructive sleep apnea (adult) Carley Garcia MD (pediatric) 04/07/2019 I25.10 Atherosclerotic heart disease of [place] Adrien Brown M.D. coronary artery with 04/07/2019 I49.3 Ventricular premature depolarization Adrien Brown M.D. 04/07/2019 E78.00 Pure hypercholesterolemia, unspecified Adrien Brown M.D. 04/07/2019 I10 Essential (primary) hypertension Adrien Brown M.D. 04/07/2019 I73.9 Peripheral vascular disease Adrien Brown M.D. Plan of Treatment Future Appointment(s):01/27/2020 1:00 pm - Ad Alvarez MD at [facility] Lwrxirvkmf32/14/2020 1:30 pm - Carley Garcia MD at [facility]07/29/2019 - Ad Alvarez MDE11.22 Type 2 diabetes mellitus with diabetic chronic kidney diseaseNew Labs:Neph Routine, Ordered: Albumin, Ordered: 07/29/19Hemoglobin A1c (Glyco HGB), Ordered: Follow up:6 months f/u with labsN18.2 Chronic kidney disease, stage 2 (mild) R80.9 Proteinuria, unspecified Functional Status Description No Information Available Mental Status Description No Information Available Referrals Description No Information Available
--- OUTSIDE RECORDS SUMMARY | 2019-08-20 19:55 | XMS REPORT | Continuity of Care Document ---
:1940 External Reference #:[id number] Author Name Tyrone Leo M.D. Address [address] [place] [address] Care Team Providers Name Role Phone Mil Laughlin - Nephrology Care Team Information Vp Customer Service [phone] Annamaria Castellanos - Physical Medicine Care Team Information Vp Customer Service & Rehabilitation [facility] - Sleep Disorder Care Team Information Vp Customer Service [phone] Diagnostic Tony Caldwell - Surgery Care Team Information Vp Customer Service [phone] Tony Nash MD - Surgery Care Team Information Vp Customer Service [phone] [facility] - Oxygen Equipment & Supplies Care Team Information Vp Customer Service Abe Sue - Gastroenterology Care Team Information Vp Customer Service [phone] Carley Garcia - Pulmonary Disease Care Team Information Vp Customer Service [facility] Care Team Information Vp Customer Service [phone] Physical Therapist Tawanda Myers - Urology Care Team Information Vp Customer Service [phone] Problems Active Problems Provider Date Type 2 diabetes mellitus Tyrone Leo M.D. Onset: 09/02/2007 Benign essential hypertension Tyrone Leo M.D. Onset: 09/02/2007 Hyperlipidemia Tyrone Leo M.D. Onset: 09/02/2007 Coronary arteriosclerosis Tyrone Leo M.D. Onset: 09/02/2007 Benign prostatic hypertrophy without outflow Tyrone Leo M.D. Onset: obstruction Degenerative joint disease involving Tyrone Leo M.D. Onset: 09/02/2007 multiple joints Spinal stenosis of lumbar region Tyrone Leo M.D. Onset: 01/28/2009 Proteinuria Tyrone Leo M.D. Onset: 01/03/2012 Obstructive sleep apnea syndrome Tyrone Leo M.D. Onset: 01/03/2012 Paroxysmal atrial fibrillation Tyrone Leo M.D. Onset: 01/29/2017 Chronic kidney disease Tyrone Leo M.D. Onset: 07/14/2019 Abdominal pain Tyrone Leo M.D. Onset: 07/14/2019 Social History Type Date Description Comments Sex Unknown Tobacco Use Start: Unknown Never Smoked Cigarettes ETOH Use Rarely consumes alcohol Tobacco Use Start: Unknown Patient has never smoked Allergies, Adverse Reactions, Alerts Active Allergies Reaction Severity Comments Date Keflex 07/27/1999 Yeast Extract 04/08/2008 Brilinta shortness of breath 01/24/2016 Repatha 08/22/2017 Lipitor 12/26/2017 Pravachol 12/26/2017 Rosuvastatin Calcium 12/26/2017 Tricor 12/26/2017 Zetia 12/26/2017 Medications Active Medications SIG Qnty Indications Ordering Date Provider Glipizide/Metformin Take Two Tablets 360tabs Tyrone FCarlos 04/25/2019 Hydrochloride By Mouth Twice A Yoko Leo 5-500mg Day Tablets Clobetasol Propionate apply twice a 60gm Tyrone FCarlos 06/12/2018 day Yoko Leo 0.05% Cream Ramipril 1 po bid 180caps Tyrone FCarlos 02/27/2018 5mg Capsules Yoko Leo Tamsulosin HCL Take One Capsule 90caps Tyrone FCarlos 11/20/2016 0.4mg By Mouth Every Yoko Leo Capsules Day Aspirin Adult Low Dose 1 po qd Tyrone FCarlos 10/26/2015 Yoko Leo [address] Table[address] Buspirone HCL take one tablet 180tabs Tyrone FCarlos 02/17/2015 10mg by mouth twice a Yoko Leo Tablets day [id number]-8-[id number] Ethyl Take One Capsule 270caps Tyrone FCarlos 12/04/2014 Esters By Mouth Three Yoko Leo 1gm Capsules Times A Day Hydrocodone-Acetaminop take one tablet 180tabs Ashli [place], 04/07/2014 hen by mouth every 4 M.D. 5-325mg Tablets to 6 hours as needed maximum daily dose = six tablets N[address] one tablet 25tabs Tyrone FCarlos 06/20/2013 0.4mg Tablets under the tongue Yoko Leo Sub every 5 minutes for up to 3 doses as needed for chest pain. if chest pain still persists co Bystolic Take One Tablet 90tabs Tyrone FCarlos 12/30/2012 10mg Tablets By Mouth Every Yoko Leo Day Ascensia Contour Blood test blood sugar 3units Tyrone FCarlos 07/20/2011 Glucose Test Strips tid or as Yoko Leo directed Strips Nexium Take One Capsule 90caps Tyrone FCarlos 11/12/[address] By Mouth Every Yoko Leo Day Avodart Take One Capsule 90caps Tyrone FCarlos 0.5mg Capsules By Mouth Every Yoko Leo Day Preservision Areds 2 po qd Tyrone F. Yoko Leo Tablets Simvastatin 1 po qd Unknown 5mg Tablets Immunizations Description No Information Available Vital Signs Date Vital Result Comment 07/14/2019 11:37am BP Systolic 134 mmHg BP Diastolic 72 mmHg Heart Rate 64 /min Body Temperature 97.9 F Respiratory Rate 18 /min Height 66.5 inches 5'6.50" per patient Weight 196.00 lb BMI (Body Mass Index) 31.2 kg/m2 04/02/2019 1:45pm BP Systolic 148 mmHg BP Diastolic 74 mmHg Heart Rate 64 /min Body Temperature 98.1 F Respiratory Rate 17 /min Height 66.5 inches 5'6.50" per patient Weight 200.00 lb BMI (Body Mass Index) 31.8 kg/m2 Results Test Acquired Date Facility Test Result H/L Range Note Laboratory test 07/14/2019 [facility]) Amylase <pending> 20-105 finding Laboratory test 07/14/2019 [facility] Hemoglobin A1c 6.5 % High 4.1- 5.7 finding (607)- - ([facility]) Laboratory test 07/14/2019 [facility] Creatinine <pending> finding Clearance (F/C/CTX) Lyme Screen W/ Reflex To WB <pending> CBC Electronic (a New) 04/02/2019 [facility] WBC 5.68 4.0-10.0 (607)- - RBC 3.95 3.93-6.0 Hemoglobin ([facility]ma/CMC/CTX) 12.7 g/dL 12.0-17.0 Hematocrit (Fma/CMC/CTX) 36.9 % 35.0-50.0 Mean Corpuscular Vol 93.4 fL 80-95 Mean Corpuscular Hemoglobin 32.2 pg 25.6-32.2 Mean Corpuscular Hemo Concen 34.4 g/dL 32.2-36.0 Platelets 149 10^3/ul Low 163-400 RDW-CV 13.5 11.6-14.4 Mean Platelet Volume 10.0 fL 8.0-12.4 Absolute Neutrophils BLD 2.64 1.56-6.13 Absolute Lymphocytes 1.96 1.18-3.74 Absolute Monocytes BLD Auto 0.62 0.24-0.82 Absolute Eos Blood 0.39 0.04-0.54 Absolute Basophils 0.05 0.01-0.08 Neutrophil % 46.4 % 34.0-70.0 Lymph% 34.5 % 20.0-52.0 Monocytes % 10.9 % 5.0-12.0 Eos % 6.9 % 0.7-7.0 Basophil% 0.9 % 0-1.2 Laboratory test 04/02/2019 [facility] Hemoglobin A1c 6.5 % High 4.1- 5.7 finding (607)- - ([facility]) Comprehensive 04/02/2019 [facility]) Sodium 138 mEq/L 134-149 Metabolic Prof Potassium 4.6 mEq/L 3.6-5.5 Chloride 107 mEq/L 94-112 Carbon Dioxide 24 mEq/L 21-32 Glucose 226 mg/dL High 70-105 1 BUN 18 mg/dL 6-26 Creatinine 1.1 mg/dL 0.6-1.4 BUN/Creat Ratio 16.4 CALC 8.0-36.0 Calcium 9.4 mg/dL 8.6-10.2 Total Protein 7.9 g/dL 6.4-8.3 Albumin 4.7 g/dL 3.8-5.5 Globulin 3.2 g/dL 2.0-4.8 A/G Ratio 1.5 CALC 0.6-2.3 Alk. Phosphatase 42 U/L 22-95 Alt (SGPT) 40 U/L High 7-35 2 Ast (Sgot) 28 U/L 5-34 Total Bilirubin 0.3 mg/dL 0.2-1.3 GFR Non- >60 ml/min/1.73m^ >=60 GFR >60 ml/min/1.73m^ >=60 Lipid Profile 04/02/2019 [facility]) Cholesterol 208 mg/dL High 120-200 Triglycerides 188 mg/dL 30-200 HDL Cholesterol 41 mg/dL 30-70 LDL (Calculated) 129 CALC 0-129 VLDL Cholesterol 38 mg/dL 0-50 HDL Risk Factor 5.1 CALC High 0.0-4.4 Laboratory test finding 04/02/2019 [facility]) CK 101 U/L 38- 174 PSA 1.6 ng/mL 0.0-4.0 1 NON-FASTING 2 consistent w/ previous results Procedures Date Code Description Status 11/27/2018 [id number] Mammogram Completed 02/13/2011 [id number] Colonoscopy Completed Medical Devices Description No Information Available Encounters Type Date Location Provider Dx Diagnosis Office Visit 04/02/2019 Main Office Tyrone Leo, E11.9 Type 2 diabetes 2:00p M.D. mellitus without complications I25.10 Athscl heart disease of [place] coronary artery w/o ang pctrs I10 Essential (primary) hypertension N40.0 Benign prostatic hyperplasia without lower urinry tract symp Assessments Date Code Description Provider 07/14/2019 E11.9 Type 2 diabetes mellitus without Tyrone Leo M.D. complications 07/14/2019 I25.10 Atherosclerotic heart disease of [place] Tyrone Leo M.D. coronary artery without angina pectoris 07/14/2019 N40.0 Benign prostatic hyperplasia without lower Tyrone Leo M.D. urinary tract symptoms 07/14/2019 R10.10 Upper abdominal pain, unspecified Tyrone Leo M.D. 07/14/2019 N18.9 Chronic kidney disease, unspecified Tyrone Leo M.D. 07/14/2019 M15.0 Primary generalized (osteo)arthritis Tyrone Leo M.D. 04/03/2019 E11.9 Type 2 diabetes mellitus without Tyrone Leo M.D. complications 04/02/2019 E11.9 Type 2 diabetes mellitus without Tyrone Leo M.D. complications 04/02/2019 I25.10 Atherosclerotic heart disease of [place] Tyrone Leo M.D. coronary artery without angina pectoris 04/02/2019 I10 Essential (primary) hypertension Tyrone Leo M.D. 04/02/2019 N40.0 Benign prostatic hyperplasia without lower Tyrone Leo M.D. urinary tract symptoms Plan of Treatment Future Appointment(s):07/23/2019 3:00 pm - Tyrone Leo M.D. at [facility]/14/2019 - Tyrone Leo M.D.E11.9 Type 2 diabetes mellitus without complicationsComments:The patient was reminded to have regular Opthalmology exams , and check on blood pressure periodically.I25.10 Atherosclerotic heart disease [place] coronary artery without angina pectorisComments:continue present medication,will call if there is any increase in the frequency or severity of geajtnN51.0 Benign prostatic hyperplasia without lower urinary tract tcorchakH20.10 Upper abdominal pain, unspecifiedNew Labs:Ict Hemoccult ( [facility]), Ordered: 07/14/19Urinalysis With Micro Manual, Ordered: 07/14/19Comments: will check lab work today, and he brought in 24 urine sample to assess renal function , complains ofnew onset constipation, will check stool hemeoccults, currently on nexium but continues to have upper GI distress , will get pancreatic ultrasound , patient had severe cholecystitis years ago and cholecystectomy, will refer to gastroenterology as he may need esophagogastric bnegigdntadiL71.9 Chronic kidney disease, zmhhlqncxmsP79.0 Primary generalized ( osteo)arthritisAllFollow up:2 months Functional Status Description No Information Available Mental Status Description No Information Available Referrals Description No Information Available
--- NOTE | 2019-08-20 20:00 | ED ---
Head Injury - HPI Summary HPI Summary: 79 year old M arriving via EMS to [facility] accompanied by complains of abrasion of left forehead, left shoulder pain, abrasion on left hand, abrasions on left knee s/p mechanical fall that occurred minutes prior to arrival. Patient was outside, walking up stair steps, tripped, fell forward. He was able to catch himself with his left arm. He hit his forehead on vertical concrete wall. He was rolled supine on to grass when EMS arrived. No LOC, headache. The patient rates the pain _/10 in severity. Symptoms aggravated by nothing. Symptoms alleviated by nothing. Medications reviewed. Not on anticoagulants. Allergies noted. - History Of Current Complaint Stated Complaint: L SHOULDER PAIN PER EMS Time Seen by Provider: 08/20/19 19:54 Hx Obtained From: Patient, EMS Mechanism Of Injury: Other - mechanical fall forward Onset/Duration: Started Minutes Ago, Still Present Onset of Pain: Immediate Location of Head Injury: Frontal Aggravating Factor(s): Other: - Nothing Alleviating Factor(s): Other: - Nothing - Allergies/Home Medications Allergies/Adverse Reactions: Allergies Allergy/AdvReac Type Severity Reaction Status Date / Time MS Cephalexin [From Keflex] Allergy Severe Anaphylatic Verified 10/26/16 07:49 Shock MS Statins [Statins] Allergy Muscle Ache Verified 10/26/16 07:49 MS Ezetimibe [From Zetia] AdvReac Intermediate See Comment Verified 10/26/16 07: 49 MS Yeast [Yeast] AdvReac See Comment Verified 10/26/16 12:36 castellano's yeast AdvReac Mild See Comment Uncoded 10/26/16 07:49 Home Medications: Home Medications Beclomethasone NASAL SPRAY* [Beconase AQ NASAL SPRAY*] 2 spray BOTH NARES BEDTIME 07/07/12 [History Confirmed 10/26/16] Glipizide-Metformin HCl [Glipizide/Metformin HCl] 2 tab PO BID 07/07/12 [ History Confirmed 10/26/16] Gluc Garcia/Chondro Garcia A/Vit C/Mn [Glucosamine Chondroitin Tab] 1 tab PO BID [History Confirmed 10/26/16] Eszcq-8-Yghr Ethyl Esters (NF) [Lovaza (NF)] 1 gm PO TID 07/07/12 [History Confirmed 10/26/16] Ubidecarenone [Coenzyme Q10] 100 mg PO QAM 07/07/12 [History Confirmed 10/26/16] busPIRone TAB* [Buspar TAB*] 10 mg PO BID 04/03/15 [History Confirmed 10/26/16] Alirocumab [Praluent Pen] 75 mg SUBCUT Q14D 11/09/15 [History Confirmed 10/26/16 ] B-Complex W/Biotin & Folic Aci [Super B-Complex] 1 tab PO QAM 11/09/15 [History Confirmed 10/26/16] Dutasteride (NF) [Avodart (NF)] 0.5 mg PO DAILY 11/09/15 [History Confirmed ] Esomeprazole(NF) [Nexium(NF)] 40 mg PO DAILY 11/09/15 [History Confirmed ] Fenofibrate(NF) [Tricor(NF)] 48 mg PO QPM 11/09/15 [History Confirmed 10/26/16] HYDROcodone/ACETAMIN 5-325 MG* [[place] 5-325 TAB*] 1 tab PO Q6H PRN 11/09/15 [ History Confirmed 10/26/16] Magnesium Oxide (mg Supplement [Magnesium Oxide] 250 mg PO QAM 11/09/15 [ History Confirmed 10/26/16] Clopidogrel TAB* [Plavix TAB*] 75 mg PO DAILY 02/09/16 [History Confirmed ] Nebivolol (NF) [Bystolic (NF)] 10 mg PO QAM 02/09/16 [History Confirmed 10/27/16 ] Vitc/E/Zn/Copper/Lutein/Zeaxan [Icaps Areds2 Softgel] 2 cap PO DAILY 02/09/16 [ History Confirmed 10/26/16] Aspirin EC TAB* [Ecotrin EC Low Dose 81 MG*] 81 mg PO DAILY 10/26/16 [History Confirmed 10/26/16] Ciprofloxacin TAB* [Cipro 500 MG TAB*] 500 mg PO Q12HR #28 tab 11/01/16 [Rx] Potassium Chlor TAB* [Potassium Chlor TAB 20 MEQ*] 20 meq PO DAILY #30 tab.er [Rx] Prochlorperazine 5 mg TAB [Compazine 5 mg TAB] 5 mg PO AC #60 tab 11/01/16 [Rx] metroNIDAZOLE [Flagyl 500 MG TAB] 500 mg PO TID #42 tab 11/01/16 [Rx] Nitroglycerin TAB 0.4 MG* 0.4 mg SL ACHS 05/21/19 [History Confirmed 05/21/19] PMH/Surg Hx/FS Hx/Imm Hx Endocrine/Hematology History: Reports: Hx Diabetes Denies: Hx Anticoagulant Therapy, Hx Blood Disorders, Hx Blood Transfusions, Hx Bone Marrow Disease, Hx Systemic Lupus Erythematosus, Hx Sickle Cell Disease , Hx Thyroid Disease, Hx Anemia, Hx Unexplained Bleeding, Other Endocrine/ Hematological Disorders Cardiovascular History: Reports: Hx Angina, Hx Coronary Artery Disease, Hx Hypercholesterolemia, Hx Hypertension, Hx Myocardial Infarction, Other Cardiovascular Problems/Disorders - stent Denies: Hx Rheumatic Fever, Hx Valvular Heart Disease Respiratory History: Reports: Hx Sleep Apnea - cpap at night Denies: Hx Asthma, Hx Chronic Bronchitis, Hx Chronic Obstructive Pulmonary Disease (COPD), Hx Cystic Fibrosis, Hx Lung Cancer, Hx Pleural Effusion, Hx Pneumonia, Hx Pulmonary Edema, Hx Pulmonary Embolism, Hx Seasonal Allergies, Other Respiratory Problems/Disorders GI History: Reports: Hx Gastroesophageal Reflux Disease - omeprazole Denies: Hx Cirrhosis, Hx Crohn's Disease, Hx Diverticulosis, Hx Gall Bladder Disease, Hx Gastrointestinal Bleed, Hx Hiatal Hernia, Hx Irritable Bowel, Hx Jaundice, Hx Obstructive Bowel, Hx Ileostomy, Hx Pyloric Stenosis, Hx Ulcer, Other GI Disorders History: Reports: Hx Acute Renal Failure, Hx Chronic Renal Failure - followed by Dr. 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 Denies: Hx Bursitis, Hx Congenital Bone Abnormalities, Hx Fibromyalgia, Hx Gout, Hx Osteoporosis, Hx Scoliosis, Hx Tendonitis Comment Only: Hx Rheumatoid Arthritis - OSTEOARTHRITIS Sensory History: Reports: Hx Cataracts, Hx Contacts or Glasses - GLASSES FOR READING Denies: Hx Hearing Aid Opthamlomology History: Reports: Hx Cataracts, Hx Contacts or Glasses - GLASSES FOR READING Psychiatric History: Reports: Hx Anxiety - Cancer History Hx Chemotherapy: No Hx Radiation Therapy: No Hx Palliative Cancer Treatment: No - Surgical History Surgery Procedure, Year, and Place: 04/12 [facility] -(left) cataract, 05/12 [facility]- (left ) eye refractive error, lense replacement. 03/14 [facility]- bilateral quadraceps muscle tear & bilateral anterior thigh hematoma. heart stent, Bilateral knee surgery, yudy hole Hx Anesthesia Reactions: No Infectious Disease History: Denies: Hx Clostridium Difficile, Hx Hepatitis, Hx Human Immunodeficiency Virus (HIV), Hx of Known/Suspected MRSA, Hx Shingles, Hx Tuberculosis, Hx Known/ Suspected VRE, Hx Known/Suspected VRSA, History Other Infectious Disease, Traveled Outside the [place] in Last 30 Days - Family History Known Family History: Positive: Cardiac Disease - Social History Alcohol Use: None Hx Substance Use: No Substance Use Type: Reports: None Hx Tobacco Use: No Smoking Status (MU): Never Smoked Tobacco Review of Systems Positive: Other - left shoulder pain Positive: Other - abraison of left hand, abrasion of left forehead, abrasions of left knee Neurological/Mental Status: Negative - LOC Negative: Headache All Other Systems Reviewed And Are Negative: Yes Physical Exam - Summary Physical Exam Summary: Appearance: Well-appearing, Well-nourished, lying in bed comfortably Skin: Warm, dry, no obvious rash Eyes: sclera anicteric, no conjunctival pallor HENT: mucous membranes moist, pharynx appears normal; small area of abrasion over the left eyebrow with no significant swelling Neck: Supple, nontender Respiratory: Clear to auscultation, no signs of respiratory distress Cardiovascular: Normal S1, S2. No murmurs. Normal distal pulses in tibial and radial bilaterally. Abdomen: Soft, nontender, normal active bowel sounds present Musculoskeletal: Left knee abrasion without any associated swelling or obvious tenderness; left shoulder has moderate restricted ROM and is mildly tender to palpation without any point tenderness or deformity noted Neurological: A&Ox3, awake and alert, mentation is normal, speech is fluent and appropriate. GCS 15. Psychiatric: affect is normal, does not appear anxious or depressed Triage Information Reviewed: Yes Vital Signs Reviewed: Yes Procedures - Sedation Patient Received Moderate/Deep Sedation with Procedure: No Diagnostics - Laboratory Lab Statement: Any lab studies that have been ordered have been reviewed, and results considered in the medical decision making process. - Radiology Left shoulder x-ray Radiology Interpretation Completed By: ED Physician - Negative for fracture. Pending official report. - CT BRAIN CT Interpretation Completed By: Radiologist - IMPRESSION: 1. There is stable age-related diffuse cerebral volume loss and chronic microvascular ischemic disease. 2. No acute intracranial pathology. ED physician has reviewed this imaging report. Re-Evaluation - Re-Evaluation First Eval Re-Evaluation Time: 22:12 Change: Improved - patient agrees to d/c Head Injury Course/Dx Course Of Treatment: 79 y/o M c/o abrasion of left forehead, left shoulder pain , abrasion on left hand, abrasions of left knee s/p mechanical fall that occurred minutes ago. He tripped walking up some stairs, fell forward, caught himself with his left arm, hit his forehead on vertical concrete wall. No LOC. He was rolled supine on to grass when EMS arrived. Not currently on anticoagulants. The patient has a small area of abrasion over the left eyebrow with no significant swelling. He has a left knee abrasion without any associated swelling or obvious tenderness. His left shoulder has moderate restricted ROM and is mildly tender to palpation without any point tenderness or deformity noted. CT BRAIN shows 1. There is stable age-related diffuse cerebral volume loss and chronic microvascular ischemic disease. 2. No acute intracranial pathology. Left shoulder x-ray is negative for fracture. Patient will be discharged home with follow up from his primary care provider in 4 days. Patient was instructed to return to Emergency Department for new or worsening symptoms. Patient understands and is agreeable to this plan. - Diagnoses Provider Diagnoses: Fall, Contusion of left shoulder, Abrasion of forehead, Abrasion of left knee Discharge ED - Sign-Out/Discharge Documenting (check all that apply): Patient Departure - Discharge Plan Condition: Good Disposition: HOME Patient Education Materials: Head Injury (ED), Shoulder Sprain (ED), Abrasion ( ED), Skin Tear (ED) Referrals: Tyrone Leo MD [Primary Care Provider] - 4 Days (if not feeling better) - Billing Disposition and Condition Condition: GOOD Disposition: Home - Attestation Statements Document Initiated by Scribe: Yes Documenting Scribe: Jemima Canales Provider For Whom Scribe is Documenting (Include Credential): Torito Gibson MD Scribe Attestation: IJemima, scribed for Torito Gibson MD on 08/25/19 at 0559. Danielibthu Documentation Reviewed: Yes Provider Attestation: The documentation as recorded by the scribe, Jemima Canales accurately reflects the service I personally performed and the decisions made by me, Torito Gibson MD Status of More Document: Viewed
[2019-08-20 22:20] VITALS: BP 134/59
== END 2019-08-20 22:18 | disposition home or self-care (01) ==
LOC: ED 19:44
DX: S40.012A Contusion of left shoulder, initial encounter (principal); S00.81XA Abrasion of other part of head, initial encounter; S80.212A Abrasion, left knee, initial encounter; S60.512A Abrasion of left hand, initial encounter; W10.2XXA Fall (on)(from) incline, initial encounter; Y92.9 Unspecified place or not applicable; M19.012 Primary osteoarthritis, left shoulder; E11.22 Type 2 diabetes mellitus with diabetic chronic kidney disease; I12.9 Hypertensive chronic kidney disease with stage 1 through stage 4 chronic kidney disease, or unspecified chronic kidney disease; N18.9 Chronic kidney disease, unspecified; N17.9 Acute kidney failure, unspecified; Z79.84 Long term (current) use of oral hypoglycemic drugs; E78.00 Pure hypercholesterolemia, unspecified; G47.30 Sleep apnea, unspecified; K21.9 Gastro-esophageal reflux disease without esophagitis; F41.9 Anxiety disorder, unspecified; Z95.5 Presence of coronary angioplasty implant and graft; Z79.899 Other long term (current) drug therapy; Z88.1 Allergy status to other antibiotic agents; Z88.8 Allergy status to other drugs, medicaments and biological substances; Z91.018 Allergy to other foods
CPT/HCPCS: 70450; 99282

== ENCOUNTER 2019-10-13 09:56 | Inpatient (IN) ==
[2019-10-13] MEDS ORDERED: NS 0.9% 1000 ml BAG 1,000 ML IV ONE (10:01)
[2019-10-13] MEDS ORDERED: Diltiazem IV push/loading dose 5 MG/ML 5 ML vial (25 mg) IV SLOW PU ONE (10:08)
[2019-10-13] MEDS: Diltiazem IV push/loading dose 5 MG/ML 5 ML vial (25 mg) IV SLOW PU ONE ×2 (10:14→10:20)
[2019-10-13 10:31] LABS: ABS Lymphocytes 0.8 10^3/ul (1.0-4.8); ABS Monocytes 0.8 10^3/ul (0-0.8); Eosinophil % 0.1 %; Hematocrit 41 % (42-52); Hemoglobin 14.4 g/dL (14.0-18.0); Lymphocyte % 7.8 %; Mean Corpuscular HGB Conc 35 g/dL (31-36); Mean Corpuscular Hemoglobin 33 pg (27-31); Mean Corpuscular Volume 94 fL (80-94); Mean Platelet Volume 9.3 fL (7.4-10.4); Platelet Count 185 10^3/uL (150-450); Red Blood Count 4.39 10^6 /uL (4.18-5.48); Red Cell Distribution Width 14 % (10-15); White Blood Count 10.2 10^3/uL (3.5-10.8)
[2019-10-13 10:57] LABS: Albumin 4.2 g/dL (3.2-5.2); Albumin/Globulin Ratio 1.1 (1-3); C Reactive Protein 153.39 mg/L (<8.01); EGFR African American 57.4 (>60); EGFR Non-African American 47.4 (>60); Globulin 3.8 g/dL (2-4); Magnesium 1.7 mg/dL (1.9-2.7); Potassium 3.9 mmol/L (3.5-5.0); Total Bilirubin 0.9 mg/dL (0.2-1.0)
[2019-10-13] MEDS ORDERED: Furosemide 40 mg/4 ml IV VIAL IV SLOW PU ONE (11:24)
[2019-10-13] MEDS ORDERED: Levofloxacin 750 MG IVPREMIX 750 MG/150 ML BAG IVPB ONE (11:36)
[2019-10-13] MEDS: Diltiazem IV BAG D5W Premix 125 MG/125 ML BAG IV SCH ×3 (11:43→21:32)
[2019-10-13] MEDS ORDERED: Iodixanol (CONTRAST) 320 MG/ML 100 ML SDV IV ONE (13:01)
[2019-10-13 15:18] LABS: Urine Appearance Clear; Urine Bilirubin Negative (Negative); Urine Blood Negative (Negative); Urine Color Yellow; Urine Glucose 2+(150 mg/dL) (Negative); Urine Ketones Negative (Negative); Urine Nitrite Negative (Negative); Urine Protein 2+(100 mg/dL) (Negative); Urine Specific Gravity 1.042 (1.010-1.030); Urine Urobilinogen Negative (Negative)
[2019-10-13 15:20] LABS: Urine Bacteria Absent (Absent); Urine Red Blood Cell 1+(3-5/hpf) (Absent); Urine Squamous Epithelial Cell Present (Absent); Urine White Blood Cell Trace(0-5/hpf) (Absent)
[2019-10-13] MEDS ORDERED: Dextrose 50% Syringe 50 ml 25 GM/50 ML SYRINGE IV PUSH PRN (15:32)
[2019-10-13] MEDS ORDERED: Magnesium Sulfate IV 3 GM in NS 0.9% 100 ml BAG 100 ML IVPB ONE (16:20)
[2019-10-13 16:55] LABS: TSH (Thyroid Stimulating Horm) 1.35 mcIU/mL (0.34-5.60)
[2019-10-13] MEDS ORDERED: Al Hydrox/Mg Hydrox/Simet LIQ 30 ML UDC PO PRN (18:25)
[2019-10-13] MEDS ORDERED: HYDROcodone/ACETAMIN 5/325 mg TAB PO PRN (18:30)
[2019-10-13] MEDS: Heparin 5000 UNITS/ML 1 mL VIAL SUBCUT SCH (21:20)
[2019-10-14 05:27] LABS: Magnesium 2.6 mg/dL (1.9-2.7)
[2019-10-14 05:47] LABS: ABS Monocytes 1.1 10^3/ul (0-0.8); Hematocrit 39 % (42-52); Hemoglobin 13.6 g/dL (14.0-18.0); Lymphocyte % 7.2 %; Mean Corpuscular HGB Conc 35 g/dL (31-36); Mean Corpuscular Hemoglobin 33 pg (27-31); Mean Corpuscular Volume 94 fL (80-94); Mean Platelet Volume 8.8 fL (7.4-10.4); Nucleated Red Blood Cells % 0.1; Platelet Count 180 10^3/uL (150-450); Red Blood Count 4.13 10^6 /uL (4.18-5.48); Red Cell Distribution Width 14 % (10-15); White Blood Count 13.7 10^3/uL (3.5-10.8)
[2019-10-14 05:52] LABS: ALT 38 U/L (7-52); AST 134 U/L (13-39); Albumin 3.8 g/dL (3.2-5.2); Albumin/Globulin Ratio 1.1 (1-3); Alkaline Phosphatase 45 U/L (34-104); Anion Gap 13 mmol/L (2-11); Blood Urea Nitrogen 27 mg/dL (6-24); CO2 Carbon Dioxide 19 mmol/L (22-32); Calcium 9.6 mg/dL (8.6-10.3); Chloride 104 mmol/L (101-111); EGFR African American 51.2 (>60); EGFR Non-African American 42.3 (>60); Globulin 3.6 g/dL (2-4); Glucose 196 mg/dL (70-100); Potassium 3.6 mmol/L (3.5-5.0); Sodium 136 mmol/L (135-145); Total Protein 7.4 g/dL (6.4-8.9)
[2019-10-14] MEDS: Heparin 5000 UNITS/ML 1 mL VIAL SUBCUT SCH (06:11)
[2019-10-14] MEDS: Diltiazem IV BAG D5W Premix 125 MG/125 ML BAG IV SCH (07:22)
[2019-10-14] MEDS ORDERED: Potassium Chlor 20 meq TAB.ER PO ONE (07:44)
[2019-10-14] MEDS ORDERED: Aspirin EC 81 mg TAB.EC (enteric coated) PO SCH (09:00)
[2019-10-14] MEDS ORDERED: Furosemide 100 mg/10 ml IV VIAL IV ONE (09:00)
[2019-10-14] MEDS ORDERED: Simvastatin 10 mg TAB (NF) PO SCH (09:00)
[2019-10-14] MEDS ORDERED: Nebivolol 2.5 mg TAB (NF) PO SCH (09:00)
[2019-10-14 09:27] LABS: Urine Appearance Clear; Urine Bilirubin Negative (Negative); Urine Blood Negative (Negative); Urine Color Yellow; Urine Glucose 3+(>=500 mg/dL) (Negative); Urine Ketones Negative (Negative); Urine Nitrite Negative (Negative); Urine Protein 2+(100 mg/dL) (Negative); Urine Urobilinogen Negative (Negative)
[2019-10-14 09:31] LABS: Urine Bacteria Absent (Absent); Urine Red Blood Cell Trace(0-2/hpf) (Absent); Urine White Blood Cell Trace(0-5/hpf) (Absent)
[2019-10-14] MEDS ORDERED: Atropine 0.1 MG/ML 10 ml SYR (1 mg) ONE (10:03)
[2019-10-14 10:43] LABS: Troponin I 31.51 ng/mL (<0.03)
[2019-10-14] MEDS ORDERED: Perflutren Lipid Microsphere 3 ML VIAL ONE (10:45)
[2019-10-14 10:59] LABS: Troponin I 25.19 ng/mL (<0.03)
[2019-10-14] MEDS ORDERED: Succinylcholine 200 mg VIAL 20 mg/ml 10 ml VIAL (200 mg) ONE (11:56)
[2019-10-14] MEDS ORDERED: Propofol 10 mg/ml 100 ML BTL 100 ML ONE (11:57)
[2019-10-14] MEDS ORDERED: Rocuronium 50 mg VIAL 10 mg/ml 5 ml VIAL (50 mg) ONE ×2 (11:59→12:03)
[2019-10-14] MEDS ORDERED: Amiodarone 400 mg TAB PO ONE (12:15)
[2019-10-14] MEDS ORDERED: Etomidate 40 mg/20 ml (2 MG/ML) 20 ml VIAL (40 mg) ONE (12:23)
[2019-10-14] MEDS ORDERED: Bumetanide IV 0.25 MG/ML 4 ml VIAL (1 mg) SLOW PUSH ONE ×2 (12:41→17:00)
[2019-10-14] MEDS ORDERED: Heparin 5000 UNITS/ML 1 mL VIAL IV PRN (12:54)
[2019-10-14] MEDS ORDERED: DOBUTamine 2000 MCG/ML IVPREMX 500 MG/250 ML BAG IV SCH (13:00)
[2019-10-14] MEDS ORDERED: Potassium Chloride LIQUID 20 MEQ/15 ML LIQUID PEG TUBE ONE (13:00)
[2019-10-14] MEDS ORDERED: Heparin DRIP 25,000 UNITS BAG 25,000 UNITS/500 ML BAG IV SCH ×2 (13:00→15:00)
[2019-10-14] MEDS ORDERED: Propofol* 20 ML VIAL - FOR IV LINE PRIMING ONLY SCH (13:30)
[2019-10-14] MEDS ORDERED: Propofol 10 mg/ml 100 ML BTL 100 ML IV SCH ×2 (14:00)
[2019-10-14] MEDS ORDERED: Chlorhexidine MOUTHWASH 0.12% 15 ML UDC SWISH SPIT SCH (14:00)
[2019-10-14 14:02] LABS: HDL Cholesterol 41.7 mg/dL
[2019-10-14] MEDS ORDERED: Bumetanide IV 0.25 MG/ML 4 ml VIAL (1 mg) ONE (16:20)
[2019-10-14 16:50] VITALS: BP 100/64
[2019-10-15] MEDS ORDERED: Levofloxacin 750 MG IVPREMIX 750 MG/150 ML BAG IVPB SCH (14:00)
== END 2019-10-14 17:00 | disposition short-term general hospital (02) | DRG 308 ==
LOC: ED 09:56 → ICU 15:10
PROVIDERS: ADMIT Surgery Surgical Critical Care; ATTEND Surgery Surgical Critical Care